=== PATIENT | female | born 1990 | race Caucasian/White ===

== ENCOUNTER → 2020-07-01 09:56 | Outpatient (BNVA) | payer OTHER, SELFPAY | PROVIDERS: PCP Hospitalist; Visit Provider Internal Medicine Gastroenterology | DX: M60.9 Myositis, unspecified (principal); R94.5 Abnormal results of liver function studies; K76.0 Fatty (change of) liver, not elsewhere classified; K21.9 Gastro-esophageal reflux disease without esophagitis; Z79.899 Other long term (current) drug therapy | CPT/HCPCS: 99213; Q3014 ==

== ENCOUNTER 2020-07-04 12:58 | Outpatient (REF) | payer MEDICARE, SELFPAY ==
[2020-07-04 14:06] LABS: Alanine Aminotransferase 161 U/L (0-31); Albumin Level 4.3 g/dL (3.5-5.0); Alkaline Phosphatase 61 U/L (39-117); Anion Gap 11 (12-20); Aspartate Amino Transferase 114 U/L (5-31); Bilirubin Total 1.5 mg/dL (0.0-1.0); Blood Urea Nitrogen 10 mg/dL (9-16); Carbon Dioxide 21 mmol/L (22-29); Chloride 110 mmol/L (96-108); Estimated Glomerular Filt Rate > 60; Glucose Random 92 mg/dL (60-115); Potassium 4.3 mmol/l (3.3-5.1); Rheumatoid Factor < 15.0 IU/mL (<15.0); Sodium 138 mmol/L (135-145); Total Protein 6.9 g/dL (6.5-8.0)
[2020-07-04 14:27] LABS: TSH reflex Free T4 1.05 mIU/mL (0.32-4.0)
[2020-07-04 14:43] LABS: Erythrocyte Sedimentation Rate 7 MM/HR (0-20)
[2020-07-05 11:17] LABS: Cyclic Citrullinated Peptide <16 UNITS
[2020-07-05 12:22] LABS: JO 1 Antibody <1.0 NEG AI (<1.0 NEG)
[2020-07-05 12:46] LABS: Anti-Centromere B Antibodies <1.0 NEG AI (<1.0 NEG)
[2020-07-05 14:21] LABS: Transglutaminase Ab IgG 4 U/mL; Transglutaminase IgA 1 U/mL
[2020-07-06 16:02] LABS: Mitochondrial Antibodies NEGATIVE (NEGATIVE)
== END 2020-07-04 12:59 | disposition home or self-care (01) ==
LOC: HO.LAB 12:58
PROVIDERS: Visit Provider Internal Medicine Gastroenterology
DX: R94.5 Abnormal results of liver function studies (principal); M60.9 Myositis, unspecified; K21.9 Gastro-esophageal reflux disease without esophagitis
CPT/HCPCS: 36415; 80053; 83516; 84443; 85652; 86038; 86200; 86235; 86255; 86256; 86431

== ENCOUNTER 2020-07-08 11:02 | Outpatient (REF) | payer OTHER, SELFPAY ==
--- NOTE | 2020-07-08 16:54 | XR_ITS ---
EXAMINATION: XR KNEE, BILATERAL CLINICAL INFORMATION: Myositis COMPARISON: None TECHNIQUE: 3 views of each knee performed. FINDINGS: The alignment is normal bilaterally. No acute fracture or joint space narrowing is seen. No evidence of joint effusion. IMPRESSION: Normal examinations.
--- NOTE | 2020-07-08 16:54 | XR_ITS ---
EXAMINATION: XR CHEST CLINICAL INFORMATION: Myositis. COMPARISON: Chest x-ray 04/05/2020 TECHNIQUE: 2 views of the chest were obtained. FINDINGS: No significant abnormality is noted involving the heart, lungs, mediastinum, bony thorax or soft tissues. IMPRESSION: Unremarkable examination.
[2020-07-08 17:47] LABS: C Reactive Protein 0.14 mg/dL (< or = 0.50); Rheumatoid Factor < 15.0 IU/mL (<15.0)
[2020-07-08 18:34] LABS: Erythrocyte Sedimentation Rate 6 MM/HR (0-20)
[2020-07-08 19:46] LABS: Lactate Dehydrogenase 227 U/L (122-220)
[2020-07-10 21:47] LABS: Cyclic Citrullinated Peptide <16 UNITS
[2020-07-11 01:36] LABS: Myoglobin, Quant. Random Urine <27 mcg/L (<28)
[2020-07-12 14:52] LABS: Antibody to SS-A Antigen <1.0 NEG AI (<1.0 NEG); Antibody to SS-B Antigen 3.6 POS AI (<1.0 NEG)
[2020-07-13 02:47] LABS: CK-BB None Detected (None Detected); CK-MB 0 % (<5); CK-MM 100 % (95-100); Creatine Kinase,Total,Serum 124 U/L (29-143)
[2020-07-15 06:02] LABS: Aldolase 9.2 U/L (<=8.1)
== END 2020-07-08 11:03 | disposition home or self-care (01) ==
LOC: HO.LAB 11:02
PROVIDERS: Student in an Organized Health Care Education/Training Program; PCP Hospitalist; Visit Provider Internal Medicine Gastroenterology
DX: M60.9 Myositis, unspecified (principal); R74.8 Abnormal levels of other serum enzymes; R94.5 Abnormal results of liver function studies; K21.9 Gastro-esophageal reflux disease without esophagitis; R13.10 Dysphagia, unspecified
CPT/HCPCS: 36415; 71046; 73562; 82085; 82550; 82552; 83615; 83874; 85652; 86140; 86200; 86235; 86431; 99204; 99212

== ENCOUNTER → 2020-07-21 15:06 | Outpatient (BNVA) | payer OTHER, SELFPAY | PROVIDERS: PCP Internal Medicine; Referring Provider Internal Medicine; Visit Provider Student in an Organized Health Care Education/Training Program | DX: R74.8 Abnormal levels of other serum enzymes (principal); M35.01 Sjogren syndrome with keratoconjunctivitis; R94.5 Abnormal results of liver function studies | CPT/HCPCS: 99212 ==

== ENCOUNTER 2020-08-03 09:09 | Outpatient (REF) | payer OTHER, SELFPAY ==
--- NOTE | 2020-08-03 09:13 | FL_ITS ---
EXAMINATION: FLUOROSCOPY BARIUM SWALLOW CLINICAL INFORMATION: Dysphagia COMPARISON: None TECHNIQUE: Barium swallow with air FINDINGS: Normal swallowing reflex. Normal esophageal motility and distention. No mass, mucosal lesion or stricture is identified in the esophagus. Patient swallowed a barium tablet which demonstrated normal passage to the stomach. No reflux is seen during the course of the procedure. No hiatal hernia is identified. FLUOROSCOPIC TIME: 0.9 minutes DLP: 9.9 gycm2 FL/FL barium swallow IMPRESSION: No significant abnormality demonstrated by barium swallow. Further evaluation with endoscopy as clinically warranted.
== END 2020-08-03 09:10 | disposition home or self-care (01) ==
LOC: HO.XRAY 09:09
PROVIDERS: PCP Hospitalist; Visit Provider Internal Medicine Gastroenterology
DX: M60.9 Myositis, unspecified (principal); R13.10 Dysphagia, unspecified
CPT/HCPCS: 74220

== ENCOUNTER 2020-09-05 11:19 | Outpatient (REF) | payer OTHER, SELFPAY ==
[2020-09-06 09:44] LABS: BV Int Neg Control Negative (Negative); BV Int Pos Control Positive (Positive)
[2020-10-01 10:06] LABS: CT PCR NOT DETECTED (Not Detect.); NG PCR NOT DETECTED (Not Detect.)
== END 2020-09-05 11:20 | disposition home or self-care (01) ==
LOC: HO.LAB 11:19
PROVIDERS: PCP Hospitalist; Visit Provider Advanced Practice Midwife
DX: N89.8 Other specified noninflammatory disorders of vagina (principal); R10.2 Pelvic and perineal pain; N92.6 Irregular menstruation, unspecified; M60.9 Myositis, unspecified; R74.8 Abnormal levels of other serum enzymes; M35.01 Sjogren syndrome with keratoconjunctivitis; Z20.2 Contact with and (suspected) exposure to infections with a predominantly sexual mode of transmission
CPT/HCPCS: 87480; 87491; 87510; 87591; 87660; 99202; 99212

== ENCOUNTER 2020-09-13 07:43 | Day surgery (SDC) | payer OTHER, SELFPAY ==
--- NOTE | 2020-09-12 09:50 | HO.ANESPROP2 ---
Documented by User: Susana Kapadia 09/12/20 09:52 HPI - Anesthesia Eval Consult details Narrative: 29yo F for Left Calf Muscle Biopsy [facility] Past Medical History Medical History Depression Dysphagia GERD (gastroesophageal reflux disease) Keratoconjunctivitis Menorrhagia Myositis Sjogren's syndrome Family History Family History Mother Clotting disorder History of high blood pressure Father No problems noted. Surgical History Surgical History History of axillary surgery Hx of endoscopy Social History Social History Household Members: Family Housing: [facility] Alcohol intake: never Smoking Status: Never smoker Advance Directives: No Advance Directives Information Provided: No Gender identity: female Meds Allergies Allergy/AdvReac Type Severity Reaction Status Date / Time No Known Allergies Allergy Verified 09/13/20 08:14 Home Medications Medication Instructions Recorded Confirmed Type pantoprazole 40 mg tablet,delayed 40 mg PO DAILY 07/08/20 07/21/20 History release sucralfate 100 mg/mL oral 10 ml PO BID 07/08/20 07/21/20 History suspension Exam Exam Date and Time: September 12, 2020 0950 Pertinent Lab Results Pertinent Lab Results: Laboratory Tests 04/05/20 07/04/20 16:06 13:20 WBC 6.3 Hgb 11.0 L Hct 35.0 L Plt Count 271 Sodium 138 Potassium 4.3 Chloride 110 H Carbon Dioxide 21 L BUN 10 Creatinine 0.76 Assessment and Plan Assessment Anesthesia Assessment: Chart Reviewed Documented by User: Jorgito Wilson MD 09/13/20 08:45 [facility] Past Medical History Medical History Depression Dysphagia GERD (gastroesophageal reflux disease) Keratoconjunctivitis Menorrhagia Myositis Sjogren's syndrome Family History Family History Mother Clotting disorder History of high blood pressure Father No problems noted. Surgical History Surgical History History of axillary surgery Hx of endoscopy Social History Social History Household Members: Family [facility]: [facility] Alcohol intake: never Smoking Status: Never smoker Advance Directives: No Advance Directives Information Provided: No Gender identity: female Meds Allergies Allergy/AdvReac Type Severity Reaction Status Date / Time No Known Allergies Allergy Verified 09/13/20 08:14 Home Medications Medication Instructions Recorded Confirmed Type pantoprazole 40 mg tablet,delayed 40 mg PO DAILY 07/08/20 07/21/20 History release sucralfate 100 mg/mL oral 10 ml PO BID 07/08/20 07/21/20 History suspension Exam Airway Mallampati Class: II TM Dist: >3cm Neck ROM: Full Loose/Missing/Broken Teeth: No Heart: RRR Lungs: NL Other: AO Assessment and Plan Assessment Anesthesia Assessment: Anesthesia Plan Discussed and Chart Reviewed Final Anesthetic Review NPO: Yes ASA Class: II Final Preanesthetic Review: No Changes in Pt Med Stat, Meds/Allgs Chart Reviewed, Consent Obtained/Reviewed and Anes Risks/Benef Reviewed Patient Risk: Low Procedure Risk: Low Anesthetic Plan Anesthetic Plan: MAC: Disposition: Standard PACU
[2020-09-13 08:27] VITALS: BP 128/74; PULSE 93; RESP 16; TEMP 36.6; O2SAT 98
[2020-09-13 08:33] LABS: UPreg QC Valid YES; Urine Pregnancy NEGATIVE (NEGATIVE)
[2020-09-13] MEDS: Lactated Ringers 1,000 ML 100 ML IVCONT (08:51)
[2020-09-13] MEDS: ceFAZolin Sodium/Dextrose,Iso 2 GM/50 ML PIGGYBACK IV (08:52)
--- NOTE | 2020-09-13 09:10 | MHC.SHP ---
Pre-Procedural Eval Section B Chief Complaint: Myositis Allergies: Allergies Allergy/AdvReac Type Severity Reaction Status Date / Time No Known Allergies Allergy Verified 09/13/20 08:14 Plan I have reviewed the history and physical and performed a pertinent physical examination on my patient. No changes have occurred unless specified.
[2020-09-13] MEDS: oxyCODONE HCl Immed Release 5 MG TABLET PO (09:16)
[2020-09-13 09:25] VITALS: BMI 32.6
--- NOTE | 2020-09-13 10:12 | PM.OP ---
Brief Operative Note Date of Service: 09/13/20 Pre-op diagnosis: myositis Post-op diagnosis: same Procedure: L calf muscle biopsy Surgeon: Alejandro Higuera MD Anesthesia: MAC Estimated blood loss (mL): 5 Pathology: other (muscle biopsy) Condition: stable Disposition: PACU
[2020-09-13 10:14] VITALS: BP 116/66; PULSE 77; RESP 16; TEMP 36.8; O2SAT 100
[2020-09-13 10:29] VITALS: BP 120/70; PULSE 58; RESP 16; O2SAT 100
--- NOTE | 2020-09-13 10:36 | OP_ITS ---
SURGEON: Alejandro Higuera MD INDICATIONS: The patient is a 29-year-old female with chronic left calf pain as well as diagnosis of Sjogren's disease. She had been referred to me by her derivatives trader for left calf muscle biopsy. She understood the technique of procedure and she was aware of the risks, benefits, and alternatives. PREOPERATIVE DIAGNOSIS: Myositis. POSTOPERATIVE DIAGNOSIS: Myositis. PROCEDURE PERFORMED: Muscle biopsy, left calf, under anesthesia. ESTIMATED BLOOD LOSS: COMPLICATIONS: ANESTHESIA: ASSISTANTS: Vanessa Cruz PA-C SPECIMENS: DESCRIPTION OF PROCEDURE: She was brought to the operating room, placed in prone position under monitored anesthesia care. The left calf was prepped and draped in usual sterile fashion. A surgical time-out has been done. The patient received cefazolin 2 g IV preoperatively. I used lidocaine 1% to infiltrate the planned line of incision. I made a transverse incision in the skin using blade 15, carried down to full-thickness skin and subcutaneous fat with electrocautery until we were able to reach the muscle fascia. I infiltrated this area some more with lidocaine 1%. I made an incision using blade 15 on the fascia, and the muscle fibers were exposed. I isolated 1.5 cm length of muscle. This was clamped on both ends and was divided using scissors. This was stretched using the muscle clamp. I cauterized the divided edges of the muscle using electrocautery to achieve hemostasis. I reapposed the divided edges of the muscle fibers using [id number] Dexon 3-0 stitch. I closed the fascia of the muscle with a running Dexon 2-0 stitch. I infiltrated the area of the subcutaneous layer. The subcutaneous layer was reapposed with Dexon 3-0 interrupted sutures. Skin closure achieved with Dexon 4-0 subcuticular running sutures. Steri-Strips and dressings were applied. The patient tolerated the procedure well. There were no complications noted. Initial and final counts of sponges and instruments were correct. Estimated blood loss was about 3 mL. The patient extubated without difficulty and was then transferred to recovery room with stable vital signs. MD SERGEI Archibald/PRAVIN / [phone]
[2020-09-13 10:44] VITALS: BP 122/66; PULSE 64; RESP 16; TEMP 36.8; O2SAT 100
--- NOTE | 2020-09-13 12:25 | PC.NURSE ---
DRESSING [facility]I PER REPORT PT STS PAIN TO CALF WHEN MOVING, DENIES NAUSEA, PALE, HAD OXYCODONE PRE OP
--- NOTE | 2020-09-13 13:47 | HO.POSTANES ---
Post Anesthesia Evaluation Post Anesthesia Evaluation Vital Signs: Vital Signs Temp Pulse Resp BP Pulse Ox 09/13/20 10:44 98.2 F 64 16 122/66 100 09/13/20 10:29 58 16 120/70 100 09/13/20 10:14 98.2 F 77 16 116/66 100 09/13/20 08:27 98 F 93 16 128/74 98 Anesthesia: Monitored Mental Status: Awake Pain Control: Satisfactory Nausea/Vomiting: None Hydration: Adequate Anesthesia-Related Issues: No Anes. Related Issues
== END 2020-09-13 11:40 | disposition home or self-care (01) ==
PROVIDERS: Nurse Practitioner; PCP Hospitalist; Visit Provider Surgery
PROC: (CPT 20205; principal; 2020-09-13 09:50)
DX: M60.9 Myositis, unspecified (principal); G89.29 Other chronic pain; M35.00 Sjogren syndrome, unspecified; F32.9 Major depressive disorder, single episode, unspecified; Z79.899 Other long term (current) drug therapy
CPT/HCPCS: 20205; 81025; 88300; 88305; 88313; 88319; 88341; 88342; 88348; J0690; J1100; J2250; J2405; J3010

== ENCOUNTER → 2020-09-20 16:18 | Outpatient (BNVA) | payer OTHER, MEDICARE, SELFPAY | PROVIDERS: PCP Hospitalist; Visit Provider Surgery | DX: M60.9 Myositis, unspecified (principal); Z98.890 Other specified postprocedural states | CPT/HCPCS: 99212 ==

== ENCOUNTER → 2020-09-29 15:50 | Outpatient (BNVA) | payer SELFPAY | PROVIDERS: PCP Hospitalist; Visit Provider Surgery | DX: M60.9 Myositis, unspecified (principal) | CPT/HCPCS: 99212 ==

== ENCOUNTER → 2020-11-08 14:15 | Outpatient (BNVA) | payer OTHER, SELFPAY | PROVIDERS: Visit Provider Obstetrics & Gynecology | CPT/HCPCS: 99212 ==

== ENCOUNTER 2020-11-21 12:50 | Outpatient (REF) | payer OTHER, SELFPAY ==
--- NOTE | ~2020-11-21 | US_ITS ---
EXAMINATION: US PELVIS LIMITED US TRANSVAGINAL CLINICAL INFORMATION: Pelvic and perineal pain. COMPARISON: None TECHNIQUE: Transabdominal and transvaginal ultrasound of the pelvis is performed. FINDINGS: The uterus is anteverted measuring 11.0 cm in length, 5.7 cm in AP and 5.8 cm in transverse dimension. The uterus is homogeneous in echotexture. Right ovary measures 3.3 x 2.8 x 1.8 cm and volume 8.7 mL. It appears unremarkable. Left ovary measures 3.4 x 3.4 x 2.4 cm and volume 14.5 mL. There is an anechoic cyst measuring 2.2 x 1.3 x 1.3 cm. There is no free fluid in the cul-de-sac. US/US transvaginal IMPRESSION: Anteverted uterus, otherwise unremarkable. Small left ovarian cyst measuring 2.2 cm. There is no free fluid in the cul-de-sac.
--- NOTE | ~2020-11-21 | US_ITS ---
EXAMINATION: US PELVIS LIMITED US TRANSVAGINAL CLINICAL INFORMATION: Pelvic and perineal pain. COMPARISON: None TECHNIQUE: Transabdominal and transvaginal ultrasound of the pelvis is performed. FINDINGS: The uterus is anteverted measuring 11.0 cm in length, 5.7 cm in AP and 5.8 cm in transverse dimension. The uterus is homogeneous in echotexture. Right ovary measures 3.3 x 2.8 x 1.8 cm and volume 8.7 mL. It appears unremarkable. Left ovary measures 3.4 x 3.4 x 2.4 cm and volume 14.5 mL. There is an anechoic cyst measuring 2.2 x 1.3 x 1.3 cm. There is no free fluid in the cul-de-sac. US/US pelvic limited IMPRESSION: Anteverted uterus, otherwise unremarkable. Small left ovarian cyst measuring 2.2 cm. There is no free fluid in the cul-de-sac.
== END 2020-11-21 12:51 | disposition home or self-care (01) ==
LOC: HO.US 12:50
PROVIDERS: Visit Provider Advanced Practice Midwife
DX: R10.2 Pelvic and perineal pain (principal); N89.8 Other specified noninflammatory disorders of vagina; N92.6 Irregular menstruation, unspecified
CPT/HCPCS: 76830; 76857

== ENCOUNTER → 2020-11-28 15:42 | Outpatient (BNVA) | payer OTHER, SELFPAY | PROVIDERS: Visit Provider Advanced Practice Midwife | DX: Z13.89 Encounter for screening for other disorder (principal) | CPT/HCPCS: Q3014 ==

== ENCOUNTER → 2020-12-20 14:50 | Outpatient (BNVA) | payer OTHER, SELFPAY | PROVIDERS: PCP Hospitalist; Visit Provider Obstetrics & Gynecology | DX: Z13.89 Encounter for screening for other disorder (principal) | CPT/HCPCS: 99212 ==

== ENCOUNTER 2020-12-22 11:58 | Day surgery (SDC) | payer OTHER, SELFPAY ==
[2020-12-21 12:14] VITALS: BMI 29.5
[2020-12-22 12:38] VITALS: BP 137/84; PULSE 92; RESP 18; TEMP 37.2; O2SAT 98
[2020-12-22] MEDS: Lactated Ringers 1,000 ML 50 ML IV (12:47)
[2020-12-22] MEDS: Acetaminophen 325 MG TABLET 650 MG PO (12:50)
[2020-12-22 13:07] LABS: UPreg QC Valid YES; Urine Pregnancy NEGATIVE (NEGATIVE)
--- NOTE | 2020-12-22 13:50 | MHC.SHP ---
Pre-Procedural Eval Section A The patient is an INPATIENT: No Changes since office visit: No Cold of Flu in the past 2 weeks, No New Medical Problems, No Changes in Medication and No Patient answered all questions The History & Physical has been completed within 30 days and I have reviewed it.: Yes Section B Chief Complaint: Unwanted Fertility Allergies: Allergies Allergy/AdvReac Type Severity Reaction Status Date / Time No Known Allergies Allergy Verified 12/20/20 14:51 Plan I have reviewed the history and physical and performed a pertinent physical examination on my patient. No changes have occurred unless specified.
--- NOTE | 2020-12-22 13:52 | W.PM.OPN ---
Documented by User: My Moreno MD 12/22/20 14:48 Operative Note Operative Note Date of Service: 12/22/20 Narrative: Pre-Op Diagnosis: unwanted fertility Post-Op Diagnosis: unwanted fertility Procedures performed: laparoscopic bilateral tubal ligation with cautery Ms. Nettles is a 30 year old who has completed her family planning and desires a permanent form of sterilization. Surgical Risks: The patient was informed of the risks and benefits of the procedure. Risks included but were not limited to bleeding; infection; injury to the uterus, ovaries, bladder, bowels, blood vessels, or nerves. The patient was counseled on the risk of sterilization failure being about 1% on average. The patient was informed that in the event a occurs, the risk of ectopic is increased. The patient expressed understanding of the risks involved, all questions were answered, and the patient consented to the procedure. The patient had valid sterilization consent at the time of the procedure. The patient was taken to the operating room where a time out was performed to confirm correct patient and correct procedure. General anesthesia was established. The patient was then positioned on the operating table in the dorsal lithotomy position with the legs supported using stirrups. All pressure points were padded and a Lucy hugger was placed to maintain control of core body temperature. The patient was then prepped and draped in the usual sterile fashion. A red rubber catheter was inserted and her bladder emptied. A sponge stick was placed in the vagina for uterine manipulation. Attention was turned to the abdomen where a 5mm vertical infraumbilical incision was made. The 5mm trocar was introduced under direct visualization using the laparoscopy within the sleeve of the trocar. After intra-abdominal placement had been confirmed, the trocar was removed leaving the sleeve in place. The camera was introduced and pneumoperitoneum was established using carbon dioxide. Inspection of the abdominal cavity showed no gross abnormalities and there was no evidence of injury to the bowel, bladder, or vasculature. Attention was turned to the pelvis. The patient was placed into Trendelenburg position. The fallopian tubes and ovaries were visualized bilaterally. There were no abnormalities noted. A small incision was made in the midline approximately 2cm above the pubic symphysis. A 5mm trocar was introduced through this incision under direct visualization with the laparoscope. The fallopian tubes were inspected bilaterally and the fimbriated ends of the fallopian tube were visualized bilaterally. The left fallopian tube and mesosalpinx were grasped and cauterized using Bipolar electrocautery with the Ligasure device. This was done with approximately three chu starting medially about 1cm from the cornua and working laterally. Good cautery was confirmed. Attention was then turned to the contralateral fallopian tube and mesosalpinx which was grasped about 1cm from the cornua and cauterized with three chu moving laterally with each cauterization. Good fulguration of both tubes was then confirmed. The pneumoperitoneum was then evacuated. The laparoscope was removed and the trocar sleeves were removed. The skin incisions were closed each with a single interrupted 3-0 Vicryl suture and Dermabond was applied. Good hemostasis was confirmed. The sponge stick was removed from the vagina. The patient was transferred to the recovery room in stable condition. All needle, sponge, and instrument counts were noted to be correct x2 at the end of the procedure.
--- NOTE | 2020-12-22 13:53 | HO.ANESPROP2 ---
HPI - Anesthesia Eval Consult details Narrative: 30 yo female patient for laparoscopic BTL PMFSH Active Problems Active Problems: All Active Problems (Updated 09/12/20 @ 09:50 by Susana Kapadia) Sjogren's syndrome (Acute) Dysphagia (Acute) GERD (gastroesophageal reflux disease) (Acute) Myositis (Acute) control counseling (Acute) Potential exposure to STD (Acute) Vaginal discharge (Acute) Irregular menses (Acute) Pelvic pain (Acute) Elevated aldolase level (Acute) Abnormal LFTs (Acute) Past Medical History Medical History Depression Dysphagia GERD (gastroesophageal reflux disease) Keratoconjunctivitis Menorrhagia Myositis Sjogren's syndrome Family History Family History Mother Clotting disorder History of high blood pressure Father No problems noted. Family history of problems with anesthesia: No Surgical History Surgical History History of axillary surgery Hx of endoscopy History of Problems with Anesthesia: No Social History Social History Household Members: Family Housing: Condominium Alcohol intake: never Smoking Status: Never smoker Use of substances other than those prescribed or required for medical reasons: No Advance Directives: No Advance Directives Information Provided: Yes Gender identity: female Meds Allergies Allergy/AdvReac Type Severity Reaction Status Date / Time No Known Allergies Allergy Verified 12/20/20 14:51 Active Medications: Current Medications Generic Name Dose Route Start Last Admin Trade Name Freq PRN Reason Stop Dose Admin Lactated Ringer's 1,000 mls @ 50 mls/hr 12/22/20 12:45 12/22/20 12:47 Lr IV 50 mls/hr .Q20H ANJALI Administration Home Medications Medication Instructions Recorded Confirmed Last Taken Type pantoprazole 40 mg tablet,delayed 40 mg PO DAILY 07/08/20 09/20/20 Unknown History release sucralfate 100 mg/mL oral 10 ml PO BID 07/08/20 09/20/20 Unknown History suspension Exam Exam Date and Time: December 22, 2020 1353 Height,Weight and Vital Signs: Height 5 ft 9 in Weight 90.718 kg Last Vital Signs Temp 98.9 F 12/22/20 12:38 Pulse 92 12/22/20 12:38 Resp 18 12/22/20 12:38 BP 137/84 12/22/20 12:38 Pulse Ox 98 12/22/20 12:38 Pertinent Lab Results Pertinent Lab Results: Laboratory Tests 12/22/20 12:42 Urine Test NEGATIVE Airway Mallampati Class: II TM Dist: >3cm Neck ROM: Full Heart: RRR Lungs: CTAB Assessment and Plan Assessment Anesthesia Assessment: Anesthesia Plan Discussed and Chart Reviewed Final Anesthetic Review NPO: Yes ASA Class: II Final Preanesthetic Review: No Changes in Pt Med Stat, Meds/Allgs Chart Reviewed, Consent Obtained/Reviewed and Anes Risks/Benef Reviewed Patient Risk: Low Procedure Risk: Intermediate Assessment/Block/Sedation in SS: Assess/Block/Sedation-SS Anesthetic Plan Anesthetic Plan: GA Disposition: Standard PACU
[2020-12-22 14:49] VITALS: BP 136/88; PULSE 103; RESP 17; TEMP 36.6; O2SAT 100
[2020-12-22 14:54] VITALS: BP 128/81; PULSE 94; RESP 17; O2SAT 97
[2020-12-22] MEDS: oxyCODONE HCl Immed Release 5 MG TABLET 10 MG PO (14:57)
[2020-12-22 14:58] VITALS: BP 120/69; PULSE 101; RESP 19; O2SAT 97
[2020-12-22 15:04] VITALS: BP 122/73; PULSE 95; RESP 17; O2SAT 97
[2020-12-22 15:19] VITALS: BP 121/70; PULSE 98; RESP 17; TEMP 36.6; O2SAT 99
== END 2020-12-22 15:40 | disposition home or self-care (01) ==
PROVIDERS: Anesthesiology; Visit Provider Obstetrics & Gynecology
PROC: (CPT 58670; principal; 2020-12-22 13:20)
DX: Z30.2 Encounter for sterilization (principal); M35.00 Sjogren syndrome, unspecified; M60.9 Myositis, unspecified; F32.9 Major depressive disorder, single episode, unspecified; Z79.899 Other long term (current) drug therapy
CPT/HCPCS: 58670; 81025; J1100; J2250; J2405; J3010

== ENCOUNTER → 2021-01-06 14:08 | Outpatient (BNVA) | payer OTHER, SELFPAY | PROVIDERS: Visit Provider Obstetrics & Gynecology | DX: Z09 Encounter for follow-up examination after completed treatment for conditions other than malignant neoplasm (principal) | CPT/HCPCS: Q3014 ==

== ENCOUNTER 2021-03-08 13:46 | Outpatient (REF) | payer OTHER, SELFPAY ==
[2021-03-08 16:31] LABS: Syphilis Screen Nonreactive (Nonreactive)
[2021-03-08 16:38] LABS: TSH reflex Free T4 1.22 uIU/mL (0.32-4.0)
[2021-03-09 03:52] LABS: HBsAGNum1 0.19 S/CO (0.00-0.99); Hepatitis B Surface Antigen Negative (Negative)
[2021-03-09 03:54] LABS: HIV AB/AG Nonreactive (Nonreactive); HIV Num 1 0.06 S/CO (0.00-0.99); ~HepC Num1 0.09 S/CO (0.00-0.79); ~Hepatitis C Antibody Nonreactive (Nonreactive)
[2021-03-09 05:36] LABS: CT PCR NOT DETECTED (Not Detect.); NG PCR NOT DETECTED (Not Detect.)
[2021-03-09 09:49] LABS: BV Int Neg Control Negative (Negative); BV Int Pos Control Positive (Positive)
== END 2021-03-08 13:47 | disposition home or self-care (01) ==
LOC: HO.LAB 13:46
PROVIDERS: Advanced Practice Midwife; Visit Provider Obstetrics & Gynecology
DX: Z01.419 Encounter for gynecological examination (general) (routine) without abnormal findings (principal); Z01.84 Encounter for antibody response examination; Z11.3 Encounter for screening for infections with a predominantly sexual mode of transmission; Z11.4 Encounter for screening for human immunodeficiency virus [HIV]; Z11.59 Encounter for screening for other viral diseases; R63.5 Abnormal weight gain; N64.52 Nipple discharge; Z20.2 Contact with and (suspected) exposure to infections with a predominantly sexual mode of transmission
CPT/HCPCS: 36415; 84146; 84443; 86780; 86803; 87340; 87389; 87480; 87491; 87510; 87591; 87660; 88142

== ENCOUNTER → 2021-03-15 10:47 | Outpatient (BNVA) | payer OTHER, SELFPAY | PROVIDERS: Visit Provider Obstetrics & Gynecology | DX: N64.52 Nipple discharge (principal); R63.5 Abnormal weight gain | CPT/HCPCS: Q3014 ==

== ENCOUNTER → 2021-08-30 12:55 | Outpatient (BNVA) | payer OTHER, SELFPAY | PROVIDERS: Visit Provider Physician Assistant Surgical ==

== ENCOUNTER → 2021-09-04 08:48 | Outpatient (BNVA) | payer OTHER, SELFPAY | PROVIDERS: PCP Hospitalist; Visit Provider Surgery | CPT/HCPCS: Q3014 ==

== ENCOUNTER 2021-09-06 07:55 | Outpatient (REF) | payer OTHER, SELFPAY ==
--- NOTE | ~2021-09-06 | XR_ITS ---
EXAMINATION: XR CHEST CLINICAL INFORMATION: Hypersomnia, unspecified. COMPARISON: Chest radiograph done on 07/08/2020. TECHNIQUE: 2 views of the chest were obtained. FINDINGS: No significant abnormality is noted involving the heart, lungs, mediastinum, bony thorax or soft tissues. XR/XR chest 2V IMPRESSION: Unremarkable examination. No significant change since 07/08/2020.
[2021-09-06 08:13] LABS: MANUAL DIFF FLAG NO
--- NOTE | 2021-09-06 08:20 | ECG_ITS ---
Test Reason : hypersomnia Blood Pressure : / mmHG Vent. Rate : 069 BPM Atrial Rate : 069 BPM P-R Int : 150 ms QRS Dur : 082 ms QT Int : 400 ms P-R-T Axes : 033 057 040 degrees QTc Int : 428 ms Normal sinus rhythm with sinus arrhythmia Normal ECG When compared with ECG of 05-APR-2020 15:40, No significant change was found Referred By: Simon Madden Electronically Signed By:ROXY HARDWICK MD
[2021-09-06 08:34] LABS: Basophils Absolute Auto 0.1 X10*3/uL (0.0-0.2); Basophils Percent Auto 0.8 % (0-2); Eosinophils Absolute Auto 0.2 X10*3/uL (0.0-0.4); Eosinophils Percent Auto 2.7 % (0-4); Hematocrit 36.8 % (37.0-47.0); Hemoglobin 11.8 g/dl (12.0-16.0); Imm Gran Abs Auto 0.02 X10*3/uL (0.00-0.03); Imm Gran Pct Auto 0.3 % (0.0-0.4); Lymphocytes Absolute Auto 2.2 X10*3/uL (1.2-4.9); Lymphocytes Percent Auto 33.3 % (20-40); Mean Corpuscular HGB Conc 32.1 g/dl (31.0-35.0); Mean Corpuscular Hemoglobin 27.3 pg (27.0-33.0); Mean Corpuscular Volume 85.2 fL (80.0-98.0); Mean Platelet Volume 10.6 fL (9.4-12.3); Monocytes Absolute Auto 0.4 X10*3/uL (0.1-1.2); Monocytes Percent Auto 6.6 % (2-11); Neutrophils Absolute Auto 3.8 x10*3/uL (2.0-8.3); Neutrophils Percent Auto 56.3 % (45-73); Platelet Count 309 X10*3/uL (160-400); Red Blood Count 4.32 X10*6/uL (4.20-5.50); Red Cell Distribution Width 16.1 % (11.0-16.0); White Blood Count 6.7 X10*3/uL (4.8-10.8)
[2021-09-06 09:03] LABS: Alanine Aminotransferase 271 U/L (0-31); Albumin Level 4.1 g/dL (3.5-5.0); Alkaline Phosphatase 84 U/L (39-117); Anion Gap 13 (12-20); Aspartate Amino Transferase 218 U/L (5-31); Blood Urea Nitrogen 11 mg/dL (9-16); C Reactive Protein 0.46 mg/dL (< or = 0.50); Calcium 9.7 mg/dL (8.4-10.2); Carbon Dioxide 21 mmol/L (22-29); Chloride 108 mmol/L (96-108); Cholesterol 197 mg/dL; Estimated Glomerular Filt Rate > 60; Glucose Random 115 mg/dL (60-115); HDL Cholesterol 59 mg/dL; Iron 78 mcg/dL (30-160); LDL Cholesterol Calculated 124 mg/dl; Percent Iron Saturation 18 % (15-50); Potassium 4.4 mmol/L (3.3-5.1); Sodium 138 mmol/L (135-145); Total Iron Binding Capacity 436 mcg/dL (228-428); Triglycerides 73 mg/dL; Unsaturated Iron Binding 358 ug/dL
[2021-09-06 09:14] LABS: Ferritin 133 ng/mL (10-122); Insulin 58 uU/mL (2-29); TSH reflex Free T4 2.91 uIU/mL (0.32-4.0); Vitamin D 25-OH Total 7.8 ng/mL (>30)
[2021-09-06 09:24] LABS: Estimated Average Glucose 134 mg/dL; Hemoglobin A1c % 6.3 %
[2021-09-06 09:46] LABS: Folate 18.1 ng/mL (> or = 4.0); Vitamin B12 588 pg/mL (200-900)
[2021-09-08 16:26] LABS: Calcium (PTHI) 9.7 mg/dL (8.6-10.2); PTHI 68 pg/mL (14-64)
[2021-09-12 01:47] LABS: Zinc 92 mcg/dL (60-130)
[2021-09-13 12:17] LABS: Vitamin B1 6 nmol/L (8-30)
[2021-09-13 17:17] LABS: Vitamin A 32 mcg/dL (38-98)
== END 2021-09-06 07:56 | disposition home or self-care (01) ==
LOC: HO.LAB 07:55
PROVIDERS: PCP Hospitalist; Visit Provider Surgery
DX: E66.9 Obesity, unspecified (principal); Z68.37 Body mass index [BMI] 37.0-37.9, adult; K21.9 Gastro-esophageal reflux disease without esophagitis; G47.10 Hypersomnia, unspecified
CPT/HCPCS: 36415; 71046; 80053; 80061; 82306; 82607; 82728; 82746; 83036; 83525; 83540; 83970; 84425; 84443; 84590; 84630; 85025; 86140; 93005

== ENCOUNTER → 2021-10-06 08:05 | Outpatient (BNVA) | payer OTHER, SELFPAY | PROVIDERS: PCP Hospitalist; Visit Provider Surgery | CPT/HCPCS: Q3014 ==

== ENCOUNTER → 2021-10-09 08:01 | Outpatient (BNVA) | payer OTHER, SELFPAY | PROVIDERS: PCP Hospitalist; Visit Provider Dietitian, Registered | DX: E66.9 Obesity, unspecified (principal); Z71.3 Dietary counseling and surveillance | CPT/HCPCS: 97802 ==

== ENCOUNTER 2021-10-10 09:33 | Outpatient (REF) | payer OTHER, SELFPAY ==
[2021-10-10 14:12] LABS: H Pylori Breath Test Positive (Negative)
== END 2021-10-10 09:34 | disposition home or self-care (01) ==
LOC: HO.LNP 09:33
PROVIDERS: Surgery; PCP Hospitalist; Referring Provider Hospitalist; Visit Provider Physician Assistant Surgical
DX: E66.9 Obesity, unspecified (principal); Z68.37 Body mass index [BMI] 37.0-37.9, adult; G47.10 Hypersomnia, unspecified; K21.9 Gastro-esophageal reflux disease without esophagitis
CPT/HCPCS: 83013; 99211

== ENCOUNTER → 2021-10-27 07:31 | Outpatient (BNVA) | payer OTHER, SELFPAY | PROVIDERS: PCP Hospitalist; Visit Provider Surgery | DX: Z13.89 Encounter for screening for other disorder (principal) ==

== ENCOUNTER → 2021-11-03 13:22 | Outpatient (BNVA) | payer OTHER, SELFPAY | PROVIDERS: PCP Hospitalist; Referring Provider Hospitalist; Visit Provider Surgery | DX: Z13.89 Encounter for screening for other disorder (principal) ==

== ENCOUNTER → 2021-11-06 08:12 | Outpatient (BNVA) | payer OTHER, SELFPAY | PROVIDERS: PCP Hospitalist; Visit Provider Surgery | DX: E66.9 Obesity, unspecified (principal); Z68.34 Body mass index [BMI] 34.0-34.9, adult | CPT/HCPCS: Q3014 ==

== ENCOUNTER 2021-11-07 08:54 | Outpatient (REF) | payer OTHER, SELFPAY ==
--- NOTE | ~2021-11-07 | US_ITS ---
EXAMINATION: US COMPLETE ABDOMEN WITH LIVER ELASTOGRAPHY CLINICAL INFORMATION: Hypersomnia COMPARISON: Previous abdominal ultrasound April 2020 TECHNIQUE: Real-time imaging of the abdominal viscera. Noninvasive ultrasound liver fibrosis assessment is performed using Yudelka ElastPQ point quantification shear wave elastography (2D-SWE) with a C5-2 MHz transducer. Multiple elastography samples are obtained. FINDINGS: PANCREAS: Normal. ABDOMINAL AORTA: The proximal, middle, and distal aortic segments are normal in caliber. INFERIOR VENA CAVA: Visualized portions are normal. LIVER: Liver echotexture is increased probably representing fatty infiltration. There are hypoechoic areas adjacent to the gallbladder, characteristic location of focal fatty sparing. No other focal liver lesion is seen. Liver is upper normal in size. The liver contour is normal. There is no biliary duct dilatation. The right lobe measures 18 cm in length. The left lobe measures 11 cm in length. Portal flow is normal/hepatopedal Shear wave liver elastography median stiffness is 2 m/s (reference: normal median stiffness is 1.3 m/s or less). IQR/median stiffness to assess sampling precision is 0.07 (reference: good quality data set is IQR/median stiffness of 0.15 or less). GALLBLADDER: Normal. The gallbladder is physiologically distended without evidence of stones, sludge, polyps, wall thickening or pericholecystic fluid. COMMON BILE DUCT: Normal in caliber measuring 0.3 cm in diameter. RIGHT KIDNEY: Normal. No hydronephrosis. No renal calculi or focal parenchymal lesions. The kidney measures 11.5 cm in maximum dimension. LEFT KIDNEY: Normal. No hydronephrosis. No renal calculi or focal parenchymal lesions. The kidney measures 11.8 cm in maximum dimension. SPLEEN: Normal. The spleen measures 10.8 cm in maximum dimension. FREE FLUID: None. US/US abdomen comp w elastography IMPRESSION: 1. Impression: fatty upper normal-size liver. 2. Liver elastography: Adequate liver sampling. Increased liver stiffness suggestive of compensated advanced chronic liver disease but need further test for confirmation. REFERENCE: Society of Radiologists in Ultrasound Liver Stiffness Thresholds (2020): LIVER STIFFNESS THRESHOLDS: *Liver Stiffness equal or less than 1.3 m/s: High probability of being normal. *Liver Stiffness less than 1.7 m/s: In the absence of other known clinical signs, rules out compensated advanced chronic liver disease. *Liver Stiffness 1.7-2.1 m/s: Suggestive of compensated advanced chronic liver disease but need further test for confirmation. *Liver Stiffness over 2.1 m/s: Rules in compensated advanced chronic liver disease. *Liver Stiffness over 2.4 m/s: Suggestive of clinically significant portal hypertension. QUALITY OF DATA SET: *IQR/Median value equal or less than 0.15 implies a quality data set. *IQR/Median value over 0.15 implies a poor quality data set. SIGNIFICANT CHANGE FROM PRIOR EXAM: Significant change if liver stiffness measurement is 10% or greater from prior exam. OTHER CONSIDERATIONS: The stage of liver fibrosis may be overestimated in the setting of acute hepatitis, liver inflammation, elevated liver function tests, hepatic vascular congestion, obstructive cholestasis, non-fasting state, and infiltrative diseases such as amyloidosis and lymphoma. In some patients with NAFLD, the liver stiffness thresholds for compensated advanced chronic liver disease may be lower. In causes other than viral hepatitis and NAFLD, liver stiffness thresholds are not well established.
--- NOTE | ~2021-11-07 | FL_ITS ---
EXAMINATION: XR FLUOROSCOPY UPPER GI WITH AIR CLINICAL INFORMATION: Hypersomnia. COMPARISON: None. TECHNIQUE: Routine upper GI air-contrast study was performed. FINDINGS: Following oral administration of thick barium and effervescent granules, there is normal propagation of bolus from the oral cavity through the pharynx and esophagus and into the stomach without any evidence of obstruction, narrowing or stricture. The course, caliber and peristalsis of the stomach, duodenal bulb and the sweep are normal. Mild gastroesophageal reflux is noted without hiatal hernia. The mucosal pattern of esophagus, stomach and the duodenum is normal. FLUOROSCOPY TIME: 2.3 minutes DOSE AREA PRODUCT: 34.038 uGy-m2 (microgray-meter squared) FL/FL upper GI w air IMPRESSION: Mild gastroesophageal reflux without hiatal hernia.
[2021-11-07 09:28] LABS: MANUAL DIFF FLAG NO
[2021-11-07 10:15] LABS: Basophils Percent Auto 0.9 % (0-2); Eosinophils Absolute Auto 0.1 X10*3/uL (0.0-0.4); Hematocrit 37.3 % (37.0-47.0); Hemoglobin 11.7 g/dl (12.0-16.0); Imm Gran Abs Auto 0.01 X10*3/uL (0.00-0.03); Imm Gran Pct Auto 0.2 % (0.0-0.4); Lymphocytes Absolute Auto 1.7 X10*3/uL (1.2-4.9); Lymphocytes Percent Auto 38.8 % (20-40); Mean Corpuscular HGB Conc 31.4 g/dl (31.0-35.0); Mean Corpuscular Hemoglobin 26.8 pg (27.0-33.0); Mean Corpuscular Volume 85.6 fL (80.0-98.0); Mean Platelet Volume 11.1 fL (9.4-12.3); Monocytes Absolute Auto 0.4 X10*3/uL (0.1-1.2); Monocytes Percent Auto 8.6 % (2-11); Neutrophils Absolute Auto 2.1 x10*3/uL (2.0-8.3); Neutrophils Percent Auto 48.5 % (45-73); Platelet Count 297 X10*3/uL (160-400); Red Blood Count 4.36 X10*6/uL (4.20-5.50); Red Cell Distribution Width 14.9 % (11.0-16.0); White Blood Count 4.3 X10*3/uL (4.8-10.8)
[2021-11-07 10:19] LABS: INTERNATIONAL NORM RATIO 1.1 (0.9-1.1)
[2021-11-07 10:21] LABS: Partial Thromboplastin Time 34.8 SEC (24.1-38.0)
[2021-11-07 10:50] LABS: Estimated Average Glucose 117 mg/dL; Hemoglobin A1c % 5.7 %
[2021-11-07 11:14] LABS: Insulin 40 uU/mL (2-29); TSH reflex Free T4 2.16 uIU/mL (0.32-4.0)
[2021-11-07 11:46] LABS: Alanine Aminotransferase 135 U/L (0-31); Albumin Level 4.2 g/dL (3.5-5.0); Alkaline Phosphatase 77 U/L (39-117); Anion Gap 12 (12-20); Aspartate Amino Transferase 94 U/L (5-31); Bilirubin Total 1.1 mg/dL (0.0-1.0); Blood Urea Nitrogen 10 mg/dL (9-16); C Reactive Protein 0.46 mg/dL (< or = 0.50); Calcium 9.7 mg/dL (8.4-10.2); Carbon Dioxide 25 mmol/L (22-29); Chloride 108 mmol/L (96-108); Cholesterol 194 mg/dL; Estimated Glomerular Filt Rate > 60; Glucose Random 107 mg/dL (60-115); HDL Cholesterol 66 mg/dL; LDL Cholesterol Calculated 117 mg/dl; Potassium 4.5 mmol/L (3.3-5.1); Sodium 140 mmol/L (135-145); Total Protein 7.1 g/dL (6.5-8.0); Triglycerides 59 mg/dL
[2021-11-09 14:32] LABS: H Pylori Breath Test Negative (Negative)
== END 2021-11-07 08:55 | disposition home or self-care (01) ==
LOC: HO.US 08:54
PROVIDERS: Physician Assistant Surgical; PCP Hospitalist; Visit Provider Surgery
DX: Z01.818 Encounter for other preprocedural examination (principal); K76.0 Fatty (change of) liver, not elsewhere classified; J45.909 Unspecified asthma, uncomplicated; I10 Essential (primary) hypertension; E66.9 Obesity, unspecified; Z68.37 Body mass index [BMI] 37.0-37.9, adult; K21.9 Gastro-esophageal reflux disease without esophagitis; G47.10 Hypersomnia, unspecified
CPT/HCPCS: 36415; 74246; 76705; 76981; 80053; 80061; 83013; 83036; 83525; 84443; 85025; 85610; 85730; 86140; 99211

== ENCOUNTER 2021-11-14 11:21 | Inpatient (IN) | payer OTHER, SELFPAY ==
[2021-11-07 12:01] VITALS: BMI 34.3
--- NOTE | 2021-11-10 09:00 | P.CONAN_ITS ---
Documented by User: Susana Kapadia NP 11/10/21 09:03 HPI - Anesthesia Eval Consult details Narrative: 30yo F for Gastrectomy Sleeve,EGD,poss diaphragmatic hernia,poss ventral hernia,poss open, s/p tubal 12/2020 with GA-ETT 7.5 PMFSH Active Problems Active Problems: All Active Problems (Updated 11/07/21 @ 11:59 by Debby Terry RN) Abnormal LFTs (Acute) Elevated aldolase level (Acute) Pelvic pain (Acute) Irregular menses (Acute) Vaginal discharge (Acute) Potential exposure to STD (Acute) control counseling (Acute) BMI 37.0-37.9, adult (Acute) Vitamin D deficiency (Acute) Hypertension (Acute) BMI 38.0-38.9,adult (Acute) Vitamin B1 deficiency (Acute) Vitamin A deficiency (Acute) BMI 36.0-36.9,adult (Acute) BMI 34.0-34.9,adult (Acute) Hypersomnolence (Acute) Anxiety (Acute) Depression (Acute) Asthma (Acute) Steatosis, liver (Acute) Obesity (Acute) Sjogren's syndrome (Acute) Dysphagia (Acute) GERD (gastroesophageal reflux disease) (Acute) Myositis (Acute) Past Medical History Medical History Anxiety Asthma COVID-19 vaccine series completed Depression DJD (degenerative joint disease) Dysphagia Family history of DVT GERD (gastroesophageal reflux disease) Hypersomnolence Keratoconjunctivitis Menorrhagia Myositis Obesity Sjogren's syndrome Steatosis, liver Family History Family History Mother Clotting disorder History of high blood pressure Father No problems noted. Brother No problems noted. Brother No problems noted. Brother No problems noted. Sister No problems noted. Son No problems noted. Son No problems noted. Daughter No problems noted. Daughter No problems noted. Other Mental health disorder Substance use disorder Family history of problems with anesthesia: No Surgical History Surgical History History of axillary surgery Hx of biopsy Hx of endoscopy Hx of excision of dermoid cyst Hx of tubal ligation Hx of wisdom tooth extraction History of Problems with Anesthesia: No Social History Social History Household Members: Family Housing: Condominium Are you a primary acute care assistant to a significant other at home: Yes (sister will be staying w/patient for one week post surgery) Do you presently have visiting nurse or other home services: No Alcohol intake: never Patient Tobacco Use Status: Never used Tobacco Use of substances other than those prescribed or required for medical reasons: No Have you been hit, kicked, punched, or otherwise hurt by someone within the past year? If so, by whom?: No Are you DNR?: No Advance Directives: No (no official HCP-sister is primary contact) Advance Directives Information Provided: Yes (sister-Candy Obando ) Advance Directives on File: No Recently lost weight without trying: No Eating poorly because of decreased appetite: No Nutrition Risks: No Nutritional Risk Patient : No FDLMP: 11/14/20 : No Poor oral hygiene: No Current occupational status: unemployed Gender identity: Female Meds Allergies Allergy/AdvReac Type Severity Reaction Status Date / Time No Known Allergies Allergy Verified 11/06/21 13:45 Home Medications Medication Instructions Recorded Confirmed Last Taken Type albuterol sulfate 90 mcg/actuation 2 puff INHALATION Q6H PRN 09/04/21 11/07/21 Unknown History aerosol inhaler Exam Exam Date and Time: November 10, 2021 0900 Height,Weight and Vital Signs: Height 5 ft 9 in Weight 105.46 kg Pertinent Lab Results Pertinent Lab Results: Laboratory Tests 11/07/21 09:20 Blood Type A Positive Antibody Screen NEGATIVE Laboratory Tests 11/07/21 11/07/21 09:24 09:24 WBC 4.3 L Hgb 11.7 L Hct 37.3 Plt Count 297 Sodium 140 Potassium 4.5 Chloride 108 Carbon Dioxide 25 BUN 10 Creatinine 0.75 Narrative Narrative: EKG 08/2021 Vent. Rate : 069 BPM ? ? Atrial Rate : 069 BPM ?? P-R Int : 150 ms? QRS Dur : 082 ms ? ? QT Int : 400 ms ? ? ? P-R-T Axes : 033 057 040 degrees ?? QTc Int : 428 ms ? Normal sinus rhythm with sinus arrhythmia Normal ECG When compared with ECG of 05-APR-2020 15:40, No significant change was found Assessment and Plan Assessment Anesthesia Assessment: Chart Reviewed Final Anesthetic Review Family History of Problems with Anesthesia: No History of Problems with Anesthesia: No Documented by User: Olga Post MD 11/14/21 12:52 PMF Active Problems Active Problems: All Active Problems (Updated 11/07/21 @ 11:59 by Debby Terry RN) Abnormal LFTs (Acute) Elevated aldolase level (Acute) Pelvic pain (Acute) Irregular menses (Acute) Vaginal discharge (Acute) Potential exposure to STD (Acute) control counseling (Acute) BMI 37.0-37.9, adult (Acute) Vitamin D deficiency (Acute) Hypertension (Acute) BMI 38.0-38.9,adult (Acute) Vitamin B1 deficiency (Acute) Vitamin A deficiency (Acute) BMI 36.0-36.9,adult (Acute) BMI 34.0-34.9,adult (Acute) Hypersomnolence (Acute) Anxiety (Acute) Depression (Acute) Asthma (Acute) Steatosis, liver (Acute) Obesity (Acute) Sjogren's syndrome (Acute) Dysphagia (Acute) GERD (gastroesophageal reflux disease) (Acute) Myositis (Acute)- symptoms of thigh pain about 2 years ago. Had biopsy. Symptoms have since resolved Denies TRAY Past Medical History Medical History Anxiety Asthma COVID-19 vaccine series completed Depression DJD (degenerative joint disease) Dysphagia Family history of DVT GERD (gastroesophageal reflux disease) Hypersomnolence Keratoconjunctivitis Menorrhagia Myositis Obesity Sjogren's syndrome Steatosis, liver Family History Family History Mother Clotting disorder History of high blood pressure Father No problems noted. Brother No problems noted. Brother No problems noted. Brother No problems noted. Sister No problems noted. Son No problems noted. Son No problems noted. Daughter No problems noted. Daughter No problems noted. Other Mental health disorder Substance use disorder Surgical History Surgical History History of axillary surgery Hx of biopsy Hx of endoscopy Hx of excision of dermoid cyst Hx of tubal ligation Hx of wisdom tooth extraction Social History Social History Household Members: Family Housing: Condominium Are you a primary acute care assistant to a significant other at home: Yes (sister will be staying w/patient for one week post surgery) Do you presently have visiting nurse or other home services: No Alcohol intake: never Patient Tobacco Use Status: Never used Tobacco Use of substances other than those prescribed or required for medical reasons: No Have you been hit, kicked, punched, or otherwise hurt by someone within the past year? If so, by whom?: No Are you DNR?: No Advance Directives: No (no official HCP-sister is primary contact) Advance Directives Information Provided: Yes (sister-Candy Obando ) Advance Directives on File: No Recently lost weight without trying: No Eating poorly because of decreased appetite: No Nutrition Risks: No Nutritional Risk Patient : No FDLMP: 11/14/20 : No Poor oral hygiene: No Current occupational status: unemployed Gender identity: Female Meds Allergies Allergy/AdvReac Type Severity Reaction Status Date / Time No Known Allergies Allergy Verified 11/06/21 13:45 Home Medications Medication Instructions Recorded Confirmed Last Taken Type albuterol sulfate 90 mcg/actuation 2 puff INHALATION Q6H PRN 09/04/21 11/07/21 Unknown History aerosol inhaler Exam Height,Weight and Vital Signs: Height 5 ft 9 in Weight 105.46 kg Vital Signs Temp Pulse Resp BP Pulse Ox 11/14/21 11:23 97.8 F 106 H 20 116/74 97 Pertinent Lab Results Pertinent Lab Results: Laboratory Tests 11/07/21 09:20 Blood Type A Positive Antibody Screen NEGATIVE Laboratory Tests 11/07/21 11/07/21 09:24 09:24 WBC 4.3 L Hgb 11.7 L Hct 37.3 Plt Count 297 Sodium 140 Potassium 4.5 Chloride 108 Carbon Dioxide 25 BUN 10 Creatinine 0.75 Laboratory Results - last 24 hr 11/14/21 11:12 COVID-19 ([facility]) Negative COVID-19 Clin Com See Note Airway Mallampati Class: II TM Dist: >3cm Neck ROM: Full Loose/Missing/Broken Teeth: Yes (Dental extractions) Heart: RRR Lungs: CTAB Assessment and Plan Assessment Anesthesia Assessment: Anesthesia Plan Discussed Final Anesthetic Review NPO: Yes ASA Class: III Final Preanesthetic Review: No Changes in Pt Med Stat, Meds/Allgs Chart Reviewed, Consent Obtained/Reviewed and Anes Risks/Benef Reviewed Patient Risk: Intermediate Procedure Risk: Intermediate Assessment/Block/Sedation in SS: Assess/Block/Sedation-SS Anesthetic Plan Anesthetic Plan: GA Disposition: Standard PACU and Inp. Admit - Standard Bed
--- NOTE | 2021-11-11 11:20 | MHC.SHP ---
Pre-Procedural Eval Section A Date of Service: 11/11/21 The patient is an INPATIENT: Yes The History & Physical has been completed within 30 days and I have reviewed it.: Yes Section B Chief Complaint: obesity Relevant Family History (Specify if Yes): No Relevant Social History: None Present Medications: None Medical History: No relevant PMH History of Previous Operations: No relevant previous surgery Allergies: Allergies Allergy/AdvReac Type Severity Reaction Status Date / Time No Known Allergies Allergy Verified 11/06/21 13:45 Review of Systems Sugical H&P ROS: Negative: Constitution, Cardiovascular, Respiratory, Neurological, Psychiatric, Hem-Onc, Allergic/Immunologic, Gastrointestinal, Genitourinary, Musculoskeletal, Integumentary, Endocrine and Eyes/Ears/Nose/Throat Exam Surgical H&P Exam: Normal: HEENT, Normal: Heart, Normal: Lungs, Normal: Extremities, Normal: Abdomen, Normal: Skin and Normal: Neurological Plan Diagnosis/Plan: Unchanged I have reviewed the history and physical and performed a pertinent physical examination on my patient. No changes have occurred unless specified.
[2021-11-14] VITALS (15 sets, daily range): BP systolic 116–157; BP diastolic 74–103; PULSE 92–114; RESP 16–25; TEMP 36.3–37.1; O2SAT 97–100
[2021-11-14 11:41] LABS: COVID-19 Test Negative (Negative)
[2021-11-14] MEDS: Lactated Ringers 1,000 ML 100 ML IVCONT ×2 (11:50→16:46)
[2021-11-14] MEDS: Lactated Ringers 1,000 ML 999 ML IV (11:50)
--- NOTE | 2021-11-14 12:42 | PM.PNGS ---
Subjective Subjective Date of Service: 11/15/21 Interval history: Patient has mild incisional pain, but was able to ambulate and use the incentive spirometer. She is tolerating phase 1 bariatric diet Physical Exam Vital Signs: Vital Signs: Last Vital Signs Temp 97.8 F 11/14/21 11:23 Pulse 106 H 11/14/21 11:23 Resp 20 11/14/21 11:23 BP 116/74 11/14/21 11:23 Pulse Ox 97 11/14/21 11:23 BMI result Body Mass Index 34.3 GI: Inspection: Yes normal to inspection, Yes incision (clean, dry and intact) and Yes obesity Extrem: Right lower extremity: normal to inspection (no calf tenderness) Left lower extremity: normal to inspection (no calf tenderness) Objective Data Active Medications Albuterol Sulfate (Albuterol Sulfate (0.083%) 2.5 Mg/3 Ml Vial.Neb) 2.5 mg INHALE ONCE PRN PRN Reason: Shortness of Breath/Wheezing Lactated Ringer's (Lr) 1,000 mls @ 100 mls/hr IVCONT .Q10H ANJALI Last Admin: 11/14/21 11:50 Dose: 100 mls/hr Documented by: YULIYA Labs CBC & Chem 7: 11/15/21 05:15 11/15/21 05:15 Labs: Laboratory Results - last 24 hr 11/14/21 11:12 COVID-19 ([facility]) Negative COVID-19 Clin Com See Note Procedures Date of Service Date of Service: 11/15/21 Progress Note: A&P Assessment and plan (1) Obesity: Status: Acute Assessment and Plan: s/p laparoscopic sleeve gastrectomy, lysis of adhesions repair of diaphragmatic hernia, and gastropexy Doing well Check am labs. If OK, will discharge home? (2) BMI 33.0-33.9,adult: (3) Abnormal LFTs: (4) GERD (gastroesophageal reflux disease): (5) Anxiety: Status: Acute (6) Depression: Status: Acute (7) Asthma: Status: Acute (8) Hypertension: Status: Acute (9) Sjogren's syndrome: Status: Acute (10) Steatosis, liver: Status: Acute (11) DJD (degenerative joint disease): (12) S/P laparoscopic sleeve gastrectomy: Status: Acute Fall Risk Details Current Medications: Current Medications Albuterol Sulfate (Albuterol Sulfate (0.083%) 2.5 Mg/3 Ml Vial.Neb) 2.5 mg INHALE ONCE PRN PRN Reason: Shortness of Breath/Wheezing Lactated Ringer's (Lr) 1,000 mls @ 100 mls/hr IVCONT .Q10H ANJALI Last Admin: 11/14/21 11:50 Dose: 100 mls/hr Documented by: Time Spent With Patient Time: Total time spent is greater than 50% in coordination of care (as documented) at patient's floor/unit and/or counseling patient: Time with patient: less than 15 minutes Quality Stroke Does the patient have a stroke diagnosis?: No VTE Prior VTE?: No VTE Risk Level:: Surgical - moderate VTE Device Contraindication: N/A - Device Ordered VTE Drug Contraindication: Treatment Not Indicated
--- NOTE | 2021-11-14 12:45 | PM.OP ---
Brief Operative Note Date of Service: 11/14/21 Pre-op diagnosis: Severe obesity with comorbidities (see below) Post-op diagnosis: same Procedure: INITIAL PATIENT BMI ON PRESENTATION AT OUR OFFICE: 37.9 kg/m2 LAST BMI BEFORE SURGERY: 33.3 kg/m2 COMORBIDITIES: hypertension, hyperinsulinemia, elevated LFTs, GERD, asthma, Sjorgen's syndrome, DJD, liver steatosis ?The patient presented to the Weight Management Program with significant obesity that was negatively impacting the patient's comorbidities as listed above.? The program is a phased program with a special focus on preoperative medical weight management to promote substantial weight loss and prepare the patients for the second phase of the program: bariatric surgery. The patient participated in an intensive weekly lifestyle ?intervention and exercise program during which the patient ?has lost between the initial office visit and the last preoperative visit 32,1lbs, or 12.5% of initial actual body weight. It was deemed appropriate for the patient to now have bariatric surgery. In light of the current Covid-19 pandemic and the well documented strong association of obesity and increased risk of worse outcomes if infected with Covid-19 (REFERENCES:https://pubmed.ncbi.nlm.nih.gov/12032257/,?https://pubmed.ncbi.nlm.nih.gov/15772244/), any delay in undergoing bariatric surgery may lead to the patient's worsening health condition and increased?risk of more severe Covid-19 disease if infected. In addition a recent?study from [facility] published in [facility] on 09/18/2021 ([email or web address]) found that, among patients with obesity, substantial weight loss achieved with surgery was associated with improved outcomes of COVID-19 infection. The findings suggest that obesity can be a modifiable risk factor for the severity of COVID-19 infection. In addition, the patient met the BMI-criteria for bariatric surgery based on the BMI on initial presentation. The patient should not be penalized for achieving such weight loss because ?it is not sustainable long-term without surgical intervention and it was achieved in preparation for bariatric surgery ?under my direction and based on my published research ([email or web address]).[email or web address] and?https://www.soard.org/article/[email or web address](61)30618-X/pdf) ?that a 10% preoperative weight loss improves long-term weight loss after surgery and reduces perioperative complications.? Insurance carriers such as [facility] have endorsed my recommendations ?and have included in their policies criteria to include a 10% preoperative weight loss requirement. PROCEDURE: Esophago-gastroscopy, laparoscopic sleeve gastrectomy and laparoscopic gastropexy INDICATIONS: This is a 30 year-old female who was electively scheduled for laparoscopic, possibly open sleeve gastrectomy. The risks and complications of the procedure were discussed with the patient in advance, particularly the possibility of ; pulmonary embolism; staple line leak; bleeding; GERD; cardiac, pulmonary, or renal complications; as well as long-term problems such as insufficient weight loss, vitamin deficiency, strictures, or ulcers. The patient understood all the risks, and was in agreement to proceed with surgery. DESCRIPTION OF PROCEDURE: After informed consent was obtained from the patient, the patient was given preoperative antibiotics, and was transferred to the operating room. After successful induction of general anesthesia, pneumatic compression devices were placed on both lower extremities. An upper endoscopy was performed next. The oropharynx and esophagus appeared to be within normal limits. There was no diaphragmatic hernia present consistent with the findings of the preoperative upper GI. The stomach was entered. Then after all fluid and air were suctioned and the stomach was fully decompressed, the scope was withdrawn and secured in the mid esophagus. The patient was then prepped and draped in the usual sterile manner, and abdominal access was established at the right upper quadrant with the Lg technique. A 12 mm blunt port was inserted, and the abdomen was insufflated with CO2 to a pressure of 15 mmHg. Under direct visualization, additional ports were placed, specifically two 5 mm Versi-step ports to the left upper quadrant, and a 5 mm Versi-Step port to the right upper quadrant. 1% lidocaine plain was used to infiltrate all port sites as well as all fascia defects. Following that, the patient was placed in a steep reverse Trendelenburg position. An additional 5 mm port was placed to the right flank for the Mediflex retractor that was used to retract the left lobe of the liver. The gastro-esophageal fat pad was opened with the ultrasonic device (Thunderbeat, Olympus) and the anterior esophagus and hiatus were exposed. The angle of His was opened with the ultrasonic device the fundus of the stomach from any diaphragmatic and splenic attachments. I then opened the gastrocolic ligament between the transverse colon and the greater curvature of the stomach with the ultrasonic device to enter the lesser sac and facilitate the ligation of the short gastric vessels. I started at a mid-point along the greater curvature and using the Thunderbeat, all short gastric vessels were divided all the way to the angle of His until the left afshin was completely dissected at its entirety. I then divided the gastro-colic ligament distally to a distance of about 3-4 cm proximal to the esophagus. The stomach was then divided transversely with one Endo KARLOS-45 purple, and 5 KARLOS-60 articulating orange loads using the AEON stapler and loads. Every effort was made that the gastric sleeve had a tubular shape and an even caliber throughout. Once the sleeve resection was completed, the staple line of the gastric sleeve was reinforced with Hemoclips. The resected stomach was retrieved without difficulty from the Lg port. A gastropexy was then performed in order to prevent postoperative GERD and partial gastric volvulus. Several interrupted 2.0 Surgidac sutures were placed between the sleeve's staple line and the previously divided greater omentum and gastro-colic ligament using the Endo-Stitch device. ?An upper endoscopy was performed. There was no narrowing at the GE junction. The scope was easily advanced all the way to the pylorus which was clearly visualized. There was no narrowing anywhere and the sleeve's caliber was even throughout. The sleeve's staple line was inspected and there was no evidence of ischemia, bleeding or dehiscence. At that point the gastroscope was withdrawn from the patient?s mouth while we were decompressing the bowel and the stomach from any remaining air. I looked into the lesser sac to see how the sleeve was situating and it was situating well. There was no bleeding from the staple line, spleen, or short gastric vessels. The Mediflex retractor was removed, and the undersurface of the liver was inspected and there was no bleeding. The patient was placed in supine position. I closed the fascial defect of the 12 mm port site with a figure of eight #1 Polysorb suture. Then 100 cc 0.25 % Marcaine plain with 10 mg of Dexamethasone were used to infiltrate the fascial closure as well as all skin incisions. At this point, the abdomen was deflated, all ports were removed under direct vision, and no bleeding was noted from any of the port sites. The skin incisions were irrigated with saline and were closed with 4-0 absorbable monofilament sutures. Steri-Strips and OpSites were used to cover all incisions. The patient was extubated and was transferred in stable condition to the recovery room for further care. I was present and performed all stewart parts of the procedure. Ms. Terryson was the dental assistant. There were no residents to assist with this case. Eddie Madden MD, PhD, FACS Surgeon: Simon Madden MD Anesthesia: GETA, local and other (TAP block) Was an Table Assembler used for this Procedure?: No Table Assembler: Rosi Graza Estimated blood loss (mL): 0 IV fluids (mL): 3,500 Urine output (mL): 0 (No Agarwal to record) Pathology: other (Stomach) Condition: stable Disposition: PACU
[2021-11-14] MEDS: ceFAZolin Sodium/Dextrose,Iso 2 GM/50 ML PIGGYBACK IV ×2 (13:00→18:09)
--- NOTE | 2021-11-14 15:06 | P.DS_ITS ---
DS: Providers Provider Date of Service: 11/15/21 Date of admission: 11/14/21 11:21 Primary care physician: Roya Lainez NP DS: Diagnosis Discharge Diagnosis (1) Obesity: Status: Acute (2) BMI 33.0-33.9,adult: (3) Abnormal LFTs: (4) GERD (gastroesophageal reflux disease): (5) Anxiety: Status: Acute (6) Depression: Status: Acute (7) Asthma: Status: Acute (8) Hypertension: Status: Acute (9) Sjogren's syndrome: Status: Acute (10) Steatosis, liver: Status: Acute (11) DJD (degenerative joint disease): DS: Summary Hospital Course Hospital Course: ADMITTING DIAGNOSIS: morbid obesity, HTN, asthma, anx/depression, Sjogren's DISCHARGE DIAGNOSIS: same, s/p laparoscopic sleeve gastrectomy PAST SURGICAL HISTORY: none PROCEDURE: upper endoscopy, laparoscopic sleeve gastrectomy DISCHARGE SUMMARY: History of Present Illness: The patient is a 30 year-old woman with a BMI of 37.8 kg/m2 and associated co- morbidities as described above. The patient had extensive work-up,lost 23.9 lbs preoperatively and was electively scheduled for laparoscopic, possible open sleeve gastrectomy and gastropexy. Risks and complications of the surgery were discussed with the patient in advance, particularly the possibility of , pulmonary embolism, anastomotic leak, bleeding, bowel injury, GERD, cardiac, renal or pulmonary complications. The patient understood all the risks and was in agreement with the surgical plan. Hospital Course: The patient underwent an uneventful laparoscopic sleeve gastrectomy with gastropexy on the day of admission. Postoperatively, the patient was transferred to the surgical floor. The patient received IV Acetaminophen and IV dilaudid for pain control. Patient was started on bariatric phase 1 diet POD #0. On postoperative day one, the patient was feeling well without nausea, vomiting, fevers, or tachycardia. The patient had some mild incisional pain and the abdomen was soft. On the morning of postoperative day one, the patient was continued on 1 ounce of water or ice every half hour. During the day, the patient did fairly well, having some incisional pain, but able to ambulate adequately and to tolerate liquids well. Since the patient is doing well, we decided that the patient was ready to be discharged. The patient was given instructions to follow-up with me next week and to call my office for any fever over 101, persistent abdominal pain, nausea, vomiting, GERD, symptoms of DVT such as calf tenderness, or leg swelling, or pulmonary embolism such as chest pain or shortness of breath. The patient was also instructed to drink 40-60 ounces of liquids per day using the 1-ounce cups. The patient had been given prescriptions for Tylenol for pain, Zofran prn for nausea, and pantoprazole and carafate previously. The patient was encouraged to ambulate and use the incentive spirometer. The patient was allowed to shower, but no baths, and encouraged to stay active at home. All of these instructions were given to the patient personally. All questions were answered and the patient understood all instructions, the instructions were also given to the patient in print. Time Spent with Patient Time attestation: Total time spent providing and/or coordinating discharge services: Discharge coordination time: Less than 30 minutes Quality: Stroke Does the patient have a stroke diagnosis?: No Physical Exam Vital Signs: Vital Signs: Last Vital Signs Temp 97.8 F 11/14/21 11:23 Pulse 106 H 11/14/21 11:23 Resp 20 11/14/21 11:23 BP 116/74 11/14/21 11:23 Pulse Ox 97 11/14/21 11:23 BMI result Body Mass Index 34.3 DS: Data Data Completed and Pending Pending studies at discharge: Pending at discharge 11/14/21 14:21 Surgical [PTH] Routine Labs on day of discharge: Laboratory Results - last 24 hr 11/14/21 11:12 COVID-19 ([facility]) Negative COVID-19 Clin Com See Note Discharge Plan Discharge Anticipated Discharge Date/Time: 11/15/21 11:03 Patient Disposition: Home, Self-Care Discharge Diagnosis: s/p sleeve gastrectomy Referrals: Roya Lainez NP [Primary Care Provider] - 1 Week Discharge Medications: Continued lisinopril 2.5 mg tablet 2.5 mg PO DAILY Qty: 30 2RF acetaminophen 650 mg tablet extended release 650 mg PO Q8H Qty: 90 1RF montelukast [Singulair] 10 mg tablet 10 mg PO BEDTIME 30 Days Qty: 30 5RF albuterol sulfate 90 mcg/actuation HFA aerosol inhaler 2 puff inhalation Q6H PRN (Reason: Wheezing) 0RF pantoprazole 40 mg tablet,delayed release (DR/EC) 40 mg PO DAILY Qty: 30 2RF sucralfate 100 mg/mL suspension 10 ml PO BID Qty: 400 2RF ondansetron HCl 4 mg tablet 4 mg PO Q12H Qty: 20 0RF Discontinued cholecalciferol (vitamin D3) 125 mcg (5,000 unit) capsule 125 mcg PO DAILY Qty: 30 2RF thiamine HCl (vitamin B1) 100 mg tablet 100 mg PO DAILY Qty: 30 2RF vitamin A palmitate 10,000 unit capsule 10,000 unit PO .COMPLEX Qty: 30 2RF Rx Instructions: 10,000 units PO one per day; polyethylene glycol 3350 [Miralax] 17 gram powder in packet 17 g PO DAILY Qty: 14 0RF Rx Instructions: Mix each packet with 8oz of water and do 7 packets on 11/12/21 and another 7 packets on 11/13/21 Discharge Orders: Discharge Order (Routine); Ordered 11/15/21 Ordered By: Simon Madden Diet: other Activity on Discharge: No heavy lifting Stand Alone Forms: Patient Portal Discharge page Care Plan Goals: weight loss Health Concerns: obesity Plan of Treatment: No tub baths, sex or returning to work until discussed at first post op appointment. No exercise, alcohol, tobacco or illegal drug use. Continue to use incentive spirometer hourly while awake. Walk in home for 5- 10 minutes every 2 hours during the first week. Continue phase 1 diet today and start phase 2 diet tomorrow morning. Follow all instructions in the bariatric handbook and call with any questions. 1. Please call your doctor or come back to the emergency room should any new symptoms arise. 2. You will receive a courtesy call from [facility] 24-48 hours after discharge. 3. Activity: abstain from alcohol, practice limited stair climbing, no bending, no driving, no exercise, no illicit substances, no lifting, no sex, no tub bath, no work. 4. Diet: continue as discussed with Dr. Madden. 5. Dressing Change/Wound Care: Do not change or remove surgical dressings unless they are wet or soiled. 6. Call your doctor if: - Your temperature exceeds 101.5 F - You experience excessive pain or swelling - You have an unexpected reaction to medication - You have excessive bleeding - You experience continued vomiting/nausea - Your incision begins to separate - Your incision shows signs of infection such as increased redness, swelling, excessive pain, heat, or drainage (light blood or clear fluid is normal) 7. General instructions: No lifting greater than 5 lbs for the next 4 weeks[address] within 24 hours of taking narcotic pain medications. If you do not move your bowels in the next 2 days, please take milk of magnesia over the counter. Please follow the post op diet and do not advance your diet until you are seen in the office in about 2 weeks. Please walk around your home every hour or two to prevent blood clots from forming in your legs. You do not need to wake from sleeping to walk. Please sleep in a bed or couch to prevent kinking at the hips and knees. Please take your incentive spirometer (your lung software sales representative) home with you and use it for the next few days to prevent pneumonias. You may shower, no hot tubs, baths or swimming pools. Please call the office with any questions or concerns such as increasing abdominal pain, fever, chills, shortness of breath, chest pain, leg pain or swelling, or redness or drainage from your incisions. Do not hesitate to contact the office with any questions at . The patient's medical history has been reviewed and they are considered low risk for post op DVT and therefore DVT prophylaxis is not considered necessary. Travel after surgery was reviewed. The patient has not disclosed any travel plans during the first 30 days after surgery and they have been advised that within the first 30 days after surgery any bus, plane, train or car travel over 2 hours in duration is contraindicated due to the possibility of developing blood clots from immobility. Any travel, needs to include periods of ambulation of 10 minutes in duration every 2 hours. The patient was instructed to discuss any plans for travel during this period with their bariatric surgeon. Assessment: stable, post op sleeve gastrectomy Discharge Date/Time: 11/15/21 09:14
[2021-11-14] MEDS: Famotidine/PF 20 MG/2 ML VIAL IVPUSH (15:28)
[2021-11-14] MEDS: fentaNYL citrate/PF 100 MCG/2 ML VIAL 25 MCG IVPUSH ×4 (15:30→16:00)
--- NOTE | 2021-11-14 15:32 | PHA.MEDREC ---
Pharmacy Consult ? Medication Reconciliation Nursing has completed the medication reconciliation and pharmacy has reviewed.
[2021-11-14 15:33] LABS: Hematocrit 36.5 % (37.0-47.0); Hemoglobin 11.8 g/dl (12.0-16.0)
[2021-11-14 15:53] LABS: Anion Gap 17 (12-20); Blood Urea Nitrogen 8 mg/dL (9-16); Calcium 9.5 mg/dL (8.4-10.2); Carbon Dioxide 17 mmol/L (22-29); Chloride 106 mmol/L (96-108); Creatinine Clr Calc Pharmacy 128.9; Estimated Glomerular Filt Rate > 60; Glucose Random 99 mg/dL (60-115); Potassium 4.4 mmol/L (3.3-5.1); Sodium 136 mmol/L (135-145)
[2021-11-14] MEDS: Montelukast Sodium 10 MG TABLET PO (19:44)
[2021-11-15] MEDS: ondansetron HCL 4 MG/2 ML VIAL IVPUSH ×2 (01:30→07:20)
[2021-11-15] MEDS: Lactated Ringers 1,000 ML 100 ML IVCONT (01:31)
[2021-11-15 03:52] VITALS: BP 136/79; PULSE 85; RESP 17; TEMP 36.8; O2SAT 98
[2021-11-15 05:53] LABS: Basophils Percent Auto 0.1 % (0-2); Hematocrit 37.3 % (37.0-47.0); Hemoglobin 12.1 g/dl (12.0-16.0); Imm Gran Abs Auto 0.06 X10*3/uL (0.00-0.03); Imm Gran Pct Auto 0.6 % (0.0-0.4); Lymphocytes Absolute Auto 0.6 X10*3/uL (1.2-4.9); Lymphocytes Percent Auto 5.8 % (20-40); MANUAL DIFF FLAG SCAN; Mean Corpuscular HGB Conc 32.4 g/dl (31.0-35.0); Mean Corpuscular Hemoglobin 27.1 pg (27.0-33.0); Mean Corpuscular Volume 83.6 fL (80.0-98.0); Mean Platelet Volume 10.5 fL (9.4-12.3); Monocytes Absolute Auto 0.3 X10*3/uL (0.1-1.2); Monocytes Percent Auto 2.7 % (2-11); Neutrophils Absolute Auto 9.3 x10*3/uL (2.0-8.3); Neutrophils Percent Auto 90.8 % (45-73); Platelet Count 311 X10*3/uL (160-400); Red Blood Count 4.46 X10*6/uL (4.20-5.50); Red Cell Distribution Width 14.7 % (11.0-16.0); SCAN SMEAR FLAG 1; White Blood Count 10.2 X10*3/uL (4.8-10.8)
[2021-11-15 06:17] LABS: Anion Gap 17 (12-20); Blood Urea Nitrogen 5 mg/dL (9-16); Calcium 9.9 mg/dL (8.4-10.2); Carbon Dioxide 16 mmol/L (22-29); Chloride 107 mmol/L (96-108); Glucose Random 117 mg/dL (60-115); Potassium 4.6 mmol/L (3.3-5.1); SLIDE REVIEW VERIFIED; Sodium 135 mmol/L (135-145)
[2021-11-15 06:28] LABS: Creatinine Clr Calc Pharmacy 146.3; Estimated Glomerular Filt Rate > 60
[2021-11-15 07:07] VITALS: BP 135/79; PULSE 99; RESP 18; TEMP 37.1; O2SAT 99
[2021-11-15] MEDS: lisinopriL 2.5 MG TABLET PO (07:20)
[2021-11-15] MEDS: Famotidine/PF 20 MG/2 ML VIAL IVPUSH (07:20)
--- NOTE | 2021-11-15 07:46 | HO.POSTANES ---
Post Anesthesia Evaluation Post Anesthesia Evaluation Vital Signs: Vital Signs Temp Pulse Resp BP Pulse Ox 11/15/21 07:07 98.7 F 99 18 135/79 99 11/15/21 03:52 98.2 F 85 17 136/79 98 11/14/21 23:31 98.4 F 92 17 147/89 H 99 Anesthesia: General Endotracheal-GETA Mental Status: Awake Pain Control: Satisfactory Nausea/Vomiting: None Hydration: Adequate Anesthesia-Related Issues: No Anes. Related Issues
--- NOTE | 2021-11-15 09:18 | MHC.CM.PN ---
EMR REVIEWED, CM ATTEMPTED TO MEET W/PT AND DELIVER IMM HOWEVER PT HAD ALREADY DISCHARGED HOME SELF-CARE W/SELF ARRANGED TRANSPORT.
== END 2021-11-15 09:14 | disposition home or self-care (01) | DRG 621 ==
LOC: HO.SSSA 15:06 → HO.S3 15:36
PROVIDERS: Nurse Practitioner; Physician Assistant; Admitting Provider Surgery; PCP Hospitalist; Visit Provider Surgery
PROC: 0DB64Z3 Excision of Stomach, Percutaneous Endoscopic Approach, Vertical (ICD-10-PCS; CPT 43845; principal; 2021-11-14 13:00)
DX: E66.01 Morbid (severe) obesity due to excess calories (principal); Z68.33 Body mass index [BMI] 33.0-33.9, adult; I10 Essential (primary) hypertension; E16.1 Other hypoglycemia; K21.9 Gastro-esophageal reflux disease without esophagitis; M35.00 Sjogren syndrome, unspecified; M19.90 Unspecified osteoarthritis, unspecified site; K76.0 Fatty (change of) liver, not elsewhere classified; F41.9 Anxiety disorder, unspecified; J45.909 Unspecified asthma, uncomplicated; Z20.822 Contact with and (suspected) exposure to COVID-19; Z79.899 Other long term (current) drug therapy
CPT/HCPCS: 36415; 80048; 85014; 85018; 85025; 86850; 86900; 86901; 87635; 88307; 88342; 99024; A4649; J0131; J0690; J1100; J1170; J2250; J2370; J2405; J2550; J3010

== ENCOUNTER → 2021-11-21 15:18 | Outpatient (BNVA) | payer OTHER, SELFPAY | PROVIDERS: PCP Hospitalist; Referring Provider Hospitalist; Visit Provider Surgery | DX: Z13.89 Encounter for screening for other disorder (principal) ==

== ENCOUNTER → 2021-11-22 11:57 | Outpatient (BNVA) | payer OTHER, SELFPAY | PROVIDERS: PCP Hospitalist; Referring Provider Hospitalist; Visit Provider Surgery | DX: E66.9 Obesity, unspecified (principal); Z68.32 Body mass index [BMI] 32.0-32.9, adult | CPT/HCPCS: 99212 ==

== ENCOUNTER → 2021-12-22 08:08 | Outpatient (BNVA) | payer OTHER, SELFPAY | PROVIDERS: PCP Hospitalist; Visit Provider Surgery | DX: Z13.89 Encounter for screening for other disorder (principal) ==

== ENCOUNTER → 2021-12-29 15:45 | Outpatient (BNVA) | payer OTHER, SELFPAY | PROVIDERS: PCP Hospitalist; Visit Provider Dietitian, Registered | DX: E66.9 Obesity, unspecified (principal); Z68.30 Body mass index [BMI] 30.0-30.9, adult | CPT/HCPCS: 97803 ==

== ENCOUNTER → 2022-01-09 11:15 | Outpatient (BNVA) | payer OTHER, SELFPAY | PROVIDERS: PCP Hospitalist; Visit Provider Counselor Mental Health | DX: F41.8 Other specified anxiety disorders (principal); E66.9 Obesity, unspecified | CPT/HCPCS: 90834 ==

== ENCOUNTER → 2022-01-23 11:00 | Outpatient (BNVA) | payer OTHER, SELFPAY | PROVIDERS: PCP Hospitalist; Visit Provider Counselor Mental Health | DX: F41.8 Other specified anxiety disorders (principal); Z98.84 Bariatric surgery status | CPT/HCPCS: 90834 ==

== ENCOUNTER → 2022-01-29 14:00 | Outpatient (BNVA) | payer OTHER, SELFPAY | PROVIDERS: PCP Hospitalist; Visit Provider Counselor Mental Health | DX: F41.8 Other specified anxiety disorders (principal) | CPT/HCPCS: 90834 ==

== ENCOUNTER → 2022-02-07 13:45 | Outpatient (BNVA) | payer OTHER, SELFPAY | PROVIDERS: PCP Hospitalist; Visit Provider Counselor Mental Health | DX: F41.8 Other specified anxiety disorders (principal) | CPT/HCPCS: 90834 ==

== ENCOUNTER → 2022-03-20 10:00 | Outpatient (BNVA) | payer OTHER, SELFPAY | PROVIDERS: PCP Hospitalist; Visit Provider Counselor Mental Health | DX: F41.8 Other specified anxiety disorders (principal); E66.9 Obesity, unspecified; Z98.84 Bariatric surgery status | CPT/HCPCS: 90832 ==

== ENCOUNTER → 2022-03-21 14:56 | Outpatient (BNVA) | payer OTHER, SELFPAY | PROVIDERS: PCP Hospitalist; Referring Provider Physician Assistant Surgical; Visit Provider Dietitian, Registered | DX: E66.9 Obesity, unspecified (principal); Z68.26 Body mass index [BMI] 26.0-26.9, adult | CPT/HCPCS: 97803 ==

== ENCOUNTER 2022-03-23 15:53 | Outpatient (REF) | payer OTHER, SELFPAY ==
[2022-03-23 16:50] LABS: Alanine Aminotransferase 18 U/L (0-31); Albumin Level 4.7 g/dL (3.5-5.0); Alkaline Phosphatase 73 U/L (39-117); Aspartate Amino Transferase 21 U/L (5-31); Bilirubin Direct 0.6 mg/dL (0.0-0.5); Bilirubin Total 1.7 mg/dL (0.0-1.0); Total Protein 7.6 g/dL (6.5-8.0)
== END 2022-03-23 15:54 | disposition home or self-care (01) ==
LOC: HO.LAB 15:53
PROVIDERS: PCP Hospitalist; Visit Provider Physician Assistant Surgical
DX: R10.11 Right upper quadrant pain (principal); R42 Dizziness and giddiness; Z90.3 Acquired absence of stomach [part of]
CPT/HCPCS: 36415; 80076; 99212

== ENCOUNTER 2022-05-15 08:56 | Outpatient (REF) | payer OTHER, SELFPAY ==
--- NOTE | ~2022-05-15 | US_ITS ---
EXAMINATION: US ABDOMEN LIMITED CLINICAL INFORMATION: Right upper quadrant pain. COMPARISON: Ultrasound abdomen complete 11/07/2021 and 05/02/2020. TECHNIQUE: Real-time imaging of the right upper quadrant abdominal viscera. FINDINGS: PANCREAS: Not well visualized due to bowel gas. LIVER: The liver is normal in size and contour. Liver echotexture is slightly increased probably representing fatty infiltration. There is no hepatic lesion. There is no intrahepatic biliary duct dilatation seen. GALLBLADDER: The gallbladder is physiologically distended without evidence of stones, polyps, or wall thickening. There is a small amount of sludge in the gallbladder. COMMON BILE DUCT: Normal in caliber measuring 0.3 cm in diameter. RIGHT KIDNEY: Normal. No hydronephrosis. No renal calculi or focal parenchymal lesions. The kidney measures 10.8 cm in maximum dimension. FREE FLUID: None. US/US abdomen limited IMPRESSION: Slightly echogenic liver probably representing fatty infiltration. Sludge in the gallbladder. No definite gallstone seen. Limited visualization of the pancreas.
== END 2022-05-15 08:57 | disposition home or self-care (01) ==
LOC: HO.US 08:56
PROVIDERS: Visit Provider Physician Assistant Surgical
DX: R10.11 Right upper quadrant pain (principal)
CPT/HCPCS: 76705

== ENCOUNTER 2023-09-26 01:44 | Emergency (ER) | payer OTHER, SELFPAY ==
[2023-09-26 01:45] VITALS: BP 150/86; PULSE 81; RESP 18; TEMP 36.8; O2SAT 100; BMI 23.6
[2023-09-26 02:14] LABS: MANUAL DIFF FLAG NO
[2023-09-26 02:15] LABS: Basophils Absolute Auto 0.1 X10*3/uL (0.0-0.2); Basophils Percent Auto 0.9 % (0-2); Eosinophils Absolute Auto 0.1 X10*3/uL (0.0-0.4); Eosinophils Percent Auto 1.4 % (0-4); Hemoglobin 8.3 g/dl (12.0-16.0); Imm Gran Abs Auto 0.01 X10*3/uL (0.00-0.03); Imm Gran Pct Auto 0.2 % (0.0-0.4); Lymphocytes Absolute Auto 2.7 X10*3/uL (1.2-4.9); Lymphocytes Percent Auto 47.8 % (20-40); Mean Corpuscular HGB Conc 29.6 g/dl (31.0-35.0); Mean Corpuscular Hemoglobin 21.1 pg (27.0-33.0); Mean Corpuscular Volume 71.2 fL (80.0-98.0); Mean Platelet Volume 9.7 fL (9.4-12.3); Monocytes Absolute Auto 0.4 X10*3/uL (0.1-1.2); Monocytes Percent Auto 7.8 % (2-11); Neutrophils Absolute Auto 2.3 x10*3/uL (2.0-8.3); Neutrophils Percent Auto 41.9 % (45-73); Platelet Count 336 X10*3/uL (160-400); Red Blood Count 3.93 X10*6/uL (4.20-5.50); Red Cell Distribution Width 17.2 % (11.0-16.0); White Blood Count 5.5 X10*3/uL (4.8-10.8)
[2023-09-26 02:28] LABS: Alanine Aminotransferase 6 U/L (0-31); Albumin Level 4.3 g/dL (3.5-5.0); Alkaline Phosphatase 57 U/L (39-117); Anion Gap 12 (12-20); Aspartate Amino Transferase 12 U/L (5-31); Bilirubin Total 0.7 mg/dL (0.0-1.0); Blood Urea Nitrogen 13 mg/dL (9-16); Calcium 9.5 mg/dL (8.4-10.2); Carbon Dioxide 23 mmol/L (22-29); Chloride 110 mmol/L (96-108); Creatinine Clr Calc Pharmacy 119.3; Estimated Glomerular Filt Rate > 60; Glucose Random 91 mg/dL (60-115); Potassium 4.1 mmol/L (3.3-5.1); Sodium 141 mmol/L (135-145); Total Protein 7.2 g/dL (6.5-8.0)
--- NOTE | 2023-09-26 03:29 | PC.NURSE ---
Pt noted to be anemic on initial labs. Repeat ordered, showing slight upward trend. On questioning, pt stated that she has a history of abnormal menstrual cycles, and was dx with iron deficient anemia, for which she was taking iron pills prior to her gastric bypass in 2021. She was told to stop taking the iron pills after her gastric bypass and has been untreated for anemia since. Pt remains asymptomatic for any concerns of bleeding.
[2023-09-26 06:25] VITALS: BP 126/79; PULSE 70; RESP 18; O2SAT 100
--- NOTE | 2023-09-26 06:34 | ED.GENADULT ---
HPI - General Adult General Chief complaint: General Medical Stated complaint: R Facial tingling/Ear issue Time Seen by Provider: 09/26/23 06:32 Source: patient Mode of arrival: ambulatory Limitations: no limitations History of Present Illness HPI narrative: Patient is a 32 year old assigned female at with a history of gastric bypass and anemia presenting to the emergency department today with right sided facial tinging and right sided ear pain. Patient states that over the last few hours she has had right sided face tingling and ear pain. Patient states that she initially lost some hearing in her right side but it has returned some. Patient denies any dizziness, lightheadedness, abdominal pain, nausea, vomiting, fever, chills, blurry vision, double vision, loss of vision, chest pain, difficulty breathing, shortness of breath, back pain, night sweats, pain with urination, increased urinary frequency, increased urinary urgency, blood in her urine or stool, syncope or a near syncopal episode, recent trauma or falls, bowel incontinence, bladder incontinence, bowel retention, bladder retention, or any other complaints at this time. Onset (ago): hour(s) Location: face and right (ear) Severity: mild Severity scale (1-10): 3 Pain Consistency: constant Relieving factors: none Exacerbating factors: none Associated symptoms: denies other symptoms Treatments prior to arrival: none Related Data Home Medications Medication Instructions Recorded Confirmed albuterol sulfate 90 mcg/actuation 2 puff inhalation Q6H PRN Wheezing 09/04/21 11/22/21 aerosol inhaler Previous Rx's Medication Instructions Recorded pantoprazole 40 mg tablet,delayed 40 mg PO DAILY #30 tabs 11/06/21 release sucralfate 100 mg/mL oral 10 ml PO BID #400 mL 11/06/21 suspension prednisone 20 mg tablet 20 mg PO DAILY 7 days #7 tabs 09/26/23 Allergies Allergy/AdvReac Type Severity Reaction Status Date / Time sulfamethoxazole Allergy Fever Verified 09/26/23 01:53 [From Bactrim] trimethoprim [From Bactrim] Allergy Fever Verified 09/26/23 01:53 Review of Systems Constitutional: Constitutional: Reports no additional constitutional complaints, Denies chills, Denies fever(s) and Denies night sweats Eyes: Eyes: Reports no additional eye complaints, Denies blurry vision, Denies change in vision, Denies diplopia, Denies eye discharge, Denies loss of vision and Denies eye pain ENT: Denies dizziness Comments: right ear pain, right sided facial tingling Cardiovascular: Cardiovascular: Reports no additional cardiovascular complaints, Denies chest pain, Denies lightheadedness, Denies Loss of Consciousness and Denies dyspnea Respiratory: Respiratory: Reports no additional respiratory complaints and Denies dyspnea Gastrointestinal: Gastrointestinal: Reports no additional gastrointestinal complaints, Denies abdominal pain, Denies melena, Denies hematochezia, Denies change in bowel habits and Denies change in stool character Genitourinary: Genitourinary: Denies hematuria, Denies urinary frequency, Denies dysuria, Denies urinary incontinence, Denies urinary hesitancy and Denies urinary urgency Musculoskeletal: Musculoskeletal: Reports no additional musculoskeletal complaints, Denies numbness and Denies tingling Neurologic: Denies dizziness, Denies loss of vision, Denies numbness and Denies tingling Psychiatric: Psychiatric: Reports no additional psychiatric complaints Endocrine: Endocrine: Reports no additional endocrine complaints Hematologic/Lymphatic: Hematologic/Lymphatic: Reports no additional hematologic/lymphatic complaints Allergic/Immunologic: Allergic/Immunologic: Reports no additional allergic/immunologic complaints [facility] Past Medical History Attestation statement: The following information was validated with the patient. Source: old records reviewed and nursing notes reviewed Onset Date is defined in the Problem List Problems that require an onset date and time if occurred within 24 hrs of arrival to the ED Aortic Dissection and Rupture; Neurologic impairment; Cardiopulmonary Arrest; Endotracheal Intubation; Insertion or Replacement of Mechanical Circulatory Assist Device Medical History DJD (degenerative joint disease) BMI 33.0-33.9,adult COVID-19 vaccine series completed Family history of DVT BMI 34.0-34.9,adult BMI 36.0-36.9,adult Vitamin A deficiency Vitamin B1 deficiency BMI 38.0-38.9,adult Vitamin D deficiency Hypersomnolence Anxiety Asthma Steatosis, liver BMI 37.0-37.9, adult Obesity Keratoconjunctivitis control counseling Potential exposure to STD Vaginal discharge Irregular menses Pelvic pain Sjogren's syndrome Elevated aldolase level Dysphagia GERD (gastroesophageal reflux disease) Myositis Abnormal LFTs Menorrhagia Depression Surgical History S/P laparoscopic sleeve gastrectomy Hx of excision of dermoid cyst Hx of biopsy Hx of tubal ligation Hx of wisdom tooth extraction Hx of endoscopy History of axillary surgery Family History Family History Mother Clotting disorder History of high blood pressure Father No problems noted. Brother No problems noted. Brother No problems noted. Brother No problems noted. Sister No problems noted. Son No problems noted. Son No problems noted. Daughter No problems noted. Daughter No problems noted. Other Mental health disorder Substance use disorder Social History Social History Household Members: Family Housing: Condominium Are you a primary healthcare educator to a significant other at home: Yes (sister will be staying w/patient for one week post surgery) Do you presently have visiting nurse or other home services: No Alcohol intake: never Patient Tobacco Use Status: Never used Tobacco Smoked in Last 30 Days: No Use of substances other than those prescribed or required for medical reasons: No Advance Directives: No Advance Directives Information Provided: Yes Patient : No Current occupational status: unemployed Gender identity: Female Physical Exam ED Vital Signs: Vital Signs - 24 hr 09/26/23 01:45 09/26/23 06:25 Temperature 98.2 F Pulse Rate 81 70 Respiratory Rate 18 18 Blood Pressure 150/86 H 126/79 Pulse Oximetry 100 100 Oxygen Delivery Method Room Air BMI result Body Mass Index 23.6 Const General: cooperative, no acute distress, alert and awake Nutritional Appearance: well nourished Orientation/consciousness: patient oriented x3 Limitations: no limitations HENMT Head: Yes normal to inspection and Yes atraumatic Ears: hearing grossly normal bilaterally, external ears normal and TM's normal bilaterally General nose exam: Normal external nose present, no nasal discharge noted and no epistaxis Face and sinus: Yes normal facial exam, No abrasion and No laceration Mouth: Normal oral and palatal mucosa present, no drooling and no muffled voice Eyes General: appearance normal, both eyes and all related structures Periorbital: periorbital findings normal Eyelids: Yes eyelids normal Conjunctivae: conjunctivae normal Pupils: Equal, round and reactive pupils present EOM: EOMs intact bilaterally Neck Neck: Yes normal visual inspection, Yes full ROM and Yes no lymphadenopathy Chest Chest palpation & inspection: normal inspection of the chest Resp Effort & Inspection: normal respiratory effort and able to speak in complete sentences GI Inspection: Yes normal to inspection Neuro General: patient oriented x3 and moves all extremities Cranial nerves: Yes Equal, round and reactive pupils present Cognition (Neuro): normal cognition Motor exam (neuro): 5/5 motor strength present throughout Sensory Exam: Normal double simultaneous stimulation for sensation Coordination: [id number] test normal Extrem General: Yes normal to inspection, Yes full ROM and Yes capillary refill normal Psych Appearance: grossly normal Mental Status: mental status grossly normal Affect: normal affect Attitude: cooperative Thought process: Normal thought process present Thought content: Normal thought content present Insight: Good insight present (Psych) Medications Administered Discontinued Medications Generic Name Dose Route Start Last Admin Trade Name Freq PRN Reason Stop Dose Admin Methylprednisolone Sodium Succinate 60 mg 09/26/23 06:45 09/26/23 07:24 Methylprednisolone Sod Succ 125 Mg/2 Ml Vial IM 09/26/23 06:46 60 mg ONCE ONE Administration Medical Decision Making Medical Decision Making MDM Narrative: Patient is a 32 year old assigned female at with a history of anemia and gastric bypass presenting to the emergency department today with right sided facial tingling and right ear pain / brief hearing loss. Patient's physical exam was unremarkable. Patient's blood work showed anemia which the patient confirmed is chronic for her. I explained my physical exam findings as well as all test results to the patient. I answered all questions asked by the patient. I stressed the importance of the patient taking her medication as prescribed. I stressed the importance of the patient following up with her primary care provider. I stressed the importance of the patient returning to the emergency department immediately if her symptoms were to worsen or if she were to develop any dizziness, shortness of breath, difficulty breathing, chest pain, blurry vision, loss of vision, nausea, vomiting, abdominal pain, fever, chills, back pain, or any other complaints. Patient verbalized agreement and understanding with this treatment plan and discharge. Differential Diagnosis Differential Diagnoses: The differential diagnosis associated with the presentation includes Trigeminal neuralgia Paresthesias Admission/Observation Consideration of admission/observation: Escalation of care including admission/observation considered Patient would have been admitted to the hospital had her work up had any findings where hospital admission was appropriate and her clinical presentation warranted hospital admission. Lab Data MDM Lab Attestation statement: I reviewed the patient's lab results. My interpretation of these results are in the [facility] Rationale portion of this note. 09/26/23 03:13 09/26/23 02:09 Labs: Lab Results 09/26/23 09/26/23 Range/Units 02:09 03:13 WBC 5.5 5.1 (4.8-10.8) X10*3/uL RBC 3.93 L 3.97 L (4.20-5.50) X10*6/uL Hgb 8.3 L D 8.5 L (12.0-16.0) g/dl Hct 28.0 L D 28.4 L (37.0-47.0) % MCV 71.2 L 71.5 L (80.0-98.0) fL MCH 21.1 L 21.4 L (27.0-33.0) pg MCHC 29.6 L 29.9 L (31.0-35.0) g/dl RDW 17.2 H 17.2 H (11.0-16.0) % Plt Count 336 316 (160-400) X10*3/uL MPV 9.7 9.8 (9.4-12.3) fL Immature Gran % (Auto) 0.2 0.4 (0.0-0.4) % Neut % (Auto) 41.9 L 42.7 L (45-73) % Lymph % (Auto) 47.8 H 47.4 H (20-40) % Sharkey % (Auto) 7.8 7.1 (2-11) % Eos % (Auto) 1.4 1.6 (0-4) % Baso % (Auto) 0.9 0.8 (0-2) % Lymph # (Auto) 2.7 2.4 (1.2-4.9) X10*3/uL Sharkey # (Auto) 0.4 0.4 (0.1-1.2) X10*3/uL Eos # (Auto) 0.1 0.1 (0.0-0.4) X10*3/uL Baso # (Auto) 0.1 0.0 (0.0-0.2) X10*3/uL Abs Immat Gran (auto) 0.01 0.02 (0.00-0.03) X10*3/uL Absolute Neuts (auto) 2.3 2.2 (2.0-8.3) x10*3/uL Absolute Nucleated RBC 0.000 0.000 (0.0-0.012) X10*3/uL Nucleated RBC % (auto) 0.0 0.0 (0.0-0.2) /100WBC Sodium 141 (135-145) mmol/L Potassium 4.1 (3.3-5.1) mmol/L Chloride 110 H (96-108) mmol/L Carbon Dioxide 23 (22-29) mmol/L Anion Gap 12 (12-20) BUN 13 (9-16) mg/dL Creatinine 0.72 (0.5-1.4) mg/dL Estim Creat Clear Calc 119.3 Estimated GFR > 60 Random Glucose 91 (60-115) mg/dL Calcium 9.5 (8.4-10.2) mg/dL Total Bilirubin 0.7 (0.0-1.0) mg/dL AST 12 (5-31) U/L ALT 6 (0-31) U/L Alkaline Phosphatase 57 (39-117) U/L Total Protein 7.2 (6.5-8.0) g/dL Albumin 4.3 (3.5-5.0) g/dL Prescription Management I considered prescription management with: Other (patient prescribed prednisone) Discharge Plan Discharge Clinical Impression: Trigeminal nerve spasm Patient Disposition: Home, Self-Care Instructions: Trigeminal Neuralgia (ED), Paresthesia (ED) Additional Instructions: Follow up with your primary care provider. Return to the emergency department immediately if your symptoms worsen or if you develop any dizziness, shortness of breath, difficulty breathing, chest pain, blurry vision, loss of vision, nausea, vomiting, abdominal pain, fever, chills, back pain, or any other complaints. Prescriptions: New prednisone 20 mg tablet 20 mg PO DAILY 7 Days Qty: 7 0RF No Action albuterol sulfate 90 mcg/actuation HFA aerosol inhaler 2 puff inhalation Q6H PRN (Reason: Wheezing) pantoprazole 40 mg tablet,delayed release (DR/EC) 40 mg PO DAILY Qty: 30 2RF sucralfate 100 mg/mL suspension 10 ml PO BID Qty: 400 2RF Ref[place]: [facility] [place] [facility] [place]] (Call to establish and follow up with a primary care provider. If you already have a primary care provider, please follow up with them.) [facility] [place] [facility]] (Call to establish and follow up with a primary care provider. If you already have a primary care provider, please follow up with them.) [facility] [place] [facility] Group] (Call to establish and follow up with a primary care provider. If you already have a primary care provider, please follow up with them.) Stand Alone Forms: Work/School Release Interventions: ED Discharge Assessment Last Done: 09/26/23 07:26 Discharge Date/Time: 09/26/23 07:27 Print Language: Maltese
== END 2023-09-26 07:27 | disposition home or self-care (01) ==
PROVIDERS: Emergency Provider Internal Medicine
DX: G50.0 Trigeminal neuralgia (principal); I10 Essential (primary) hypertension; Z90.3 Acquired absence of stomach [part of]; Z79.899 Other long term (current) drug therapy
CPT/HCPCS: 36415; 80053; 85025; 96372; 99284; J2930

== ENCOUNTER 2023-12-03 12:10 | Emergency (ER) | payer OTHER, SELFPAY ==
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
--- NOTE | ~2023-12-03 | XR_ITS ---
EXAMINATION: XR HIP, RIGHT CLINICAL INFORMATION: Right hip pain COMPARISON: None available. TECHNIQUE: Two views of the right hip. FINDINGS: No fracture. Alignment is anatomic. Hip joint space is maintained. Soft tissues are unremarkable. XR/XR hip RT w PEL1V IMPRESSION: Normal right hip.
--- NOTE | ~2023-12-03 | XR_ITS ---
EXAMINATION: XR LUMBOSACRAL SPINE CLINICAL INFORMATION: Low back pain COMPARISON: None available. TECHNIQUE: Three views of the lumbosacral spine. FINDINGS: Mild lumbar lordotic straightening. The vertebral bodies and posterior elements are normal. The disc spaces are preserved and the vertebral alignment is normal. The paraspinal soft tissues are normal. Pedicles and SI joints within normal limits. No hip joint narrowings. XR/XR lumbar spine 2-3V IMPRESSION: Mild lumbar lordotic straightening otherwise unremarkable study.
[2023-12-03 12:20] VITALS: BP 136/85; PULSE 100; O2SAT 100
[2023-12-03 13:24] VITALS: BP 142/79; PULSE 80; RESP 16; TEMP 37.1; O2SAT 100; BMI 26.6
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
[2023-12-03 18:44] VITALS: BP 125/73; PULSE 73; RESP 16; TEMP 36.7; O2SAT 100
== END 2023-12-03 18:52 | disposition home or self-care (01) ==
PROVIDERS: Emergency Provider Emergency Medicine
DX: S06.0X0A Concussion without loss of consciousness, initial encounter (principal); S13.4XXA Sprain of ligaments of cervical spine, initial encounter; M25.551 Pain in right hip; M54.2 Cervicalgia; R51.9 Headache, unspecified; M25.511 Pain in right shoulder; V43.63XA Car passenger injured in collision with pick-up truck in traffic accident, initial encounter; Y93.9 Activity, unspecified; Y92.410 Unspecified street and highway as the place of occurrence of the external cause; Y99.8 Other external cause status
CPT/HCPCS: 70450; 72100; 72125; 73030; 73502; 99284

== ENCOUNTER 2024-02-05 11:17 | Outpatient (REF) | payer OTHER, SELFPAY ==
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
== END 2024-02-05 11:18 | disposition home or self-care (01) ==
LOC: HO.XRAY 11:17
PROVIDERS: Visit Provider Chiropractor
DX: M25.522 Pain in left elbow (principal); Z87.828 Personal history of other (healed) physical injury and trauma
CPT/HCPCS: 73080

== ENCOUNTER 2024-11-11 17:06 | Outpatient (AMB) | payer OTHER, SELFPAY ==
--- OUTSIDE RECORDS SUMMARY | 2024-11-11 17:07 | XMS_ITS | Clinical Summary ---
Author Organization [facility] Address [address] [place] [address] Phone Care Team Providers Care Intermediate School Teacher Name Role Phone Unavailable Primary Care Provider Unavailabl e Immunizations Immunization Administration Dates Next Due DTaP 5 05/28/1997, 4,08/25/1993,05/24,02/21/1993 H1N1 08/12/2009 HPV, Quadrivalent 03/07/2009,11/05/2008,08/30/20 08 Hep B, ped/adol 08/25/1993,05/24/1993,02/21/1993 Hib (PRP-T) 05/07/1994, 3,05/24/1993,02/21 IPV 05/28/1997, 4,05/24/1993,02/21 Influenza Split 08/28/2011,06/01/2010 Influenza, injectable, trivalent 06/16/2009,12/04/2008 Influenza, intranasal, quadrivalent 07/24/2013 MMR 05/28/1997,05/07/1994 Meningococcal Conj (Menactra) MCV4P 06/24/2007 Td (adult) (MBL), 2 Lf tetan us toxoid, PF, adsorbed 02/10/2004 Tdap 06/24/2007 Family History Relation Name Status Comments Brother Brother: Asthma Father Father: Asthma Half-Brother 1 half brother: Asthma, Autism, Asthma, Asthma Half-Brother 2 half brother: Asthma, Autism, Asthma, Asthma Half-Sister Alive half sister: Al miroslava and well Mother Mother: Asthma Other Family history of Migraines, Family history of Obesity, Family history of Elevated cholesterol, Family history of Diabetes mellitus, No family history of Sudden /OH under age 55 Social History Tobacco Use Types Packs/Day Years Used Date Smoking Tobacco: Never Comments:Never smoker Comments Unknown Sex and Gender Information Value Date Recorded Sex Assigned at Not on file Legal Sex Female 4:51 PM EDT Gender Identity Not on file Sexual Orientation Not on file Last Filed Vital Signs Vital Sign Reading Time Taken Comments Blood Pressure 112/60 07/24/2013 12:00 AM EDT Pulse 58 06/30/2013 12:00 AM EDT Temperature 36.5 ??C (97.7 ??F) 06/30/2013 12:00 AM E DT Respiratory Rate - - Oxygen Saturation - - Inhaled Oxygen Concentration - - Weight 54.4 kg (120 lb) 07/24/2013 12:00 AM EDT Height 171.7 cm (5' 7.6 ) 06/30/2013 12:00 AM ED T Body Mass Index 18.46 06/30/2013 12:00 AM EDT Plan of Treatment Health Maintenance Due Date Last Done Comments Consider Men B Vaccine (1 of 2 - Bexsero 2-dose series) 2008 Varicella Vaccines (1 of 2 - 13+ 2-dose series) 08/21/2013 DTaP,Tdap,and Td Vaccines (7 - Td or Tdap) 06/24/2017 06/24/2007, 02/10/2004, 05/28/1997, Additional history exists Influenza Vaccines (#1) 2024 07/24/20 13, 08/28/2011, 06/01/2010, Additional history exists COVID-19 Vaccine ( season) 2024 Hepatitis B Vaccines Completed 08/25/1993, 05/24/1993, 02/21/1993 HIB Vaccines Completed 05/07/1994, 11/1992, 05/24/1993, Additional history exists IPV Vaccines Completed 05/28/1997, 08/23, 05/24/1993, Additional history exists MMR Vaccines Completed 05/28/1997, 05/07/1994 Meningococcal Vaccine Aged Out 06/24/2007 No reshma monico eligible based on patient's age to complete this topic HPV Vaccines Completed 03/07/2009, 10/24, 08/30/2008 Hepatitis A Vaccines Aged Out No long er eligible based on patient's age to complete this topic Men B Vaccine Aged Out No longer elig ible based on patient's age to complete this topic Pneumococcal Vaccine Aged Out No long er eligible based on patient's age to complete this topic Procedures * Due to [place] [employer] law, this organization might not be sharing sensitive test results. Procedure Name Priority Date/Time Associated Diagnosis Comments CHLAMYDIA AND GONORRHEA, AMPLIFIED Routine 08/29/2011 2:24 PM EST from Last 3 Months or Most Recently Relevant to Health Maintenance Results * Due to [place] [employer] law, this organization might not be sharing sensitive test results. * Chlamydia and Gonorrhoea, Amplified (08/29/2011 2:24 PM EST) URINE CHLAMYDIA AMP PROBE NEGATIVE [facility] Comment: NO CHLAMYDIA TRACHOMATIS RNA DETECTED IN THIS PATIENT'S SAMPLE. ? (REFERENCE RANGE/NORMAL VALUE: NOT DETECTED) URINE GC AMP PROBE NEGATIVE [facility] Comment: NO NEISSERIA GONORRHOEAE RNA DETECTED IN THIS PATIENT'S SAMPLE. ? (REFERENCE RANGE/NORMAL VALUE: NOT DETECTED) ? NOTE: THIS TEST USES SUPPORT SERVICES COORDINATOR MEDIATED AMPLIFICATION METHOD TO DETECT rRNA FROM C.TRACHOMATIS AND N.GONORRHOEAE. A NEGATIVE RESULT DOES NOT PRECLUDE INFECTION WITH C.TRACHOMATIS OR N.GONORRHOEAE BECAUSE RESULTS ARE DEPENDENT ON ADEQUATE SPECIMEN COLLECTION, ABSENCE OF INHIBITORS, AND SUFFICIENT rRNA TO BE DETECTED. THE APTIMA COMBO2 ASSAY IS NOT INTENDED FOR THE EVALUATION OF SUSPECTED SEXUAL ABUSE OR FOR OTHER MEDICO LEGAL INDICATIONS. IS TRUE FOR ALL NON CULTURE METHODS, A POSITIVE SPECIMEN OBTAINED FROM A PATIENT AFTER THERAPEUTIC TREATMENT CANNOT BE INTERPRETED INDICATING THE PRESENCE OF VIABLE C.TRACHOMATIS OR N.GONORRHOEAE. THERAPEUTIC FAILURE OR SUCCESS CANNOT BE DETERMINED WITH THE APTIMA COMBO2 ASSAY SINCE NUCLEIC ACID MAY PERSIST FOLLOWING APPROPRIATE ANTIMICROBIAL THERAPY. A NEGATIVE URINE RESULT FOR A PATIENT WHO IS CLINICALLY SUSPECTED OF HAVING A CHLAMYDIAL OR GONOCOCCAL INFECTION DOES NOT RULE OUT THE PRESENCE OF C.TRACHOMATIS OR N.GONORRHOEAE IN THE UROGENITAL TRACT. TESTING OF AN ENDOCERVICAL(FEMALE) OR URETHRAL(MALE) SPECIMEN IS RECOMMENDED IF THERE IS HIGH CLINICAL SUSPICION OF INFECTION. PRESERVCYT LIQUID PAP AND URINE SAMPLING ARE NOT DESIGNED TO REPLACE CERVICAL EXAMS AND ENDOCERVICAL SAMPLES FOR DIAGNOSIS OF FEMALE UROGENITAL INFECTIONS. PATIENTS MAY HAVE CERVICITIS, URETHRITIS, URINARY TRACT INFECTIONS, OR VAGINAL INFECTIONS DUE TO OTHER CAUSES OR CONCURRENT INFECTIONS WITH OTHER AGENTS. 08/29/2011 2:24 PM EST Narrative [facility] - 08/29/2011 2:24 PM EST URINE CHLAMYDIA GC AMP PROBE us Carolina Dhaliwal MD LAB MICROBIOLOGY - GENERAL ORD ERABLES Final Result [facility] [address] [place] [address], [place] from Last 3 Months or Most Recently Relevant to Health Maintenance
--- OUTSIDE RECORDS SUMMARY | 2024-11-11 17:07 | XMS_ITS | Encounter Summary ---
Author Organization [facility] Address [address] [place] [address] Phone Care Team Providers Care Ultrasonographer Name Role Phone Carolina Dhaliwal MD Primary Care Provider [phone] Encounter Details Date Type Department Care Team (Late st Contact Info) Description 05/09/2017 Conversion Encounter [facility] [place] [address] [place] [address] Social History Tobacco Use Types Packs/Day Years Used Date Smoking Tobacco: Never Comments:Never smoker Comments Unknown Sex and Gender Information Value Date Recorded Sex Assigned at Not on file Legal Sex Female 4:51 PM EDT Gender Identity Not on file Sexual Orientation Not on file documented as of this encounter Plan of Treatment Not on file documented as of this encounter Visit Diagnoses Not on filedocumented in this encounter Care Teams Ultrasonographer Relationship Specialty Start Date End Date Carolina Dhaliwal MD [address] [place] [address] PCP - General 05/03/17 12/05/22 documented as of this encounter
--- OUTSIDE RECORDS SUMMARY | 2024-11-11 17:07 | XMS_ITS | Encounter Summary ---
Author Organization [facility] Address [address] [place] [address] Phone Care Team Providers Care Magnetic Prospecting Supervisor Name Role Phone Carolina Dhaliwal MD Primary Care Provider [phone] Encounter Details Date Type Department Care Team (Late st Contact Info) Description 06/29/2011 Documentation [facility] [place] [address] [place], [place] [id number] Family Medicine, Physician [address] [place], [place] [address] Social History Tobacco Use Types Packs/Day Years Used Date Smoking Tobacco: Never Assessed Comments Unknown Sex and Gender Information Value Date Recorded Sex Assigned at Not on file Legal Sex Female 4:51 PM EDT Gender Identity Not on file Sexual Orientation Not on file documented as of this encounter Plan of Treatment Not on file documented as of this encounter Visit Diagnoses Not on filedocumented in this encounter Care Teams Magnetic Prospecting Supervisor Relationship Specialty Start Date End Date Carolina Dhaliwal MD [address] [facility] [place] [address] PCP - General 05/03/17 12/05/22 documented as of this encounter
--- NOTE | 2024-11-11 17:11 | A.OFFPC_ITS ---
Vital Signs 11/11/24 17:15 Height 5 ft 9 in Weight 223 lb BMI 32.9 BP 118/82 Blood Pressure Location Lt brachial Position Sitting Intake Visit Reasons: Physical Intake Note: Patient here for a physical exam Floating Operator Required: No Accompanied by: Self / Same As Patient Allergies sulfamethoxazole [From Bactrim] Allergy (Verified 11/11/24 17:26) Fever trimethoprim [From Bactrim] Allergy (Verified 11/11/24 17:26) Fever Medication List - Last Reviewed 11/11/24 by CORTNEY Velazquez Tobacco use date assessed: 11/11/24 Dental Screening Dental Screen Date: 11/11/24 Did you have a dental visit in the last 12 months?: Yes Did you have a dental problem in the last 6 months where you did not have access to dental care?: No Was dental information given to patient?: Patient has dentist HPI HPI Comments History of Present Illness Details The patient is a 33-year-old female presenting for physical exam with persistent depression and anxiety. The patient's depression has been ongoing, characterized by severe symptoms as indicated by a PHQ-9 score of 24. Anxiety was also reported. She has seen a counselor and is on a waitlist for psychiatric services. Previously, she took Zoloft but experienced side effects including nausea. Currently, she has not tried Wellbutrin. The patient reports pain associated with previously identified fatty liver disease, with discomfort localized in the back, specifically on the left side. The pain persists randomly without any specific relieving or aggravating factors mentioned. The patient has a significant surgical history including a gastric sleeve procedure in 2021 and a dermoid cyst excision of the scalp. Additionally, a previous procedure involving axillary surgery is noted, attributed to a possible rupture in that region. - Pap smear completed in 2020, negative results - Plans for additional blood work for co mprehensive health screening including glucose, liver, and kidney panels - Recommendation for flu vaccination [facility] Medical History DJD (degenerative joint disease) BMI 33.0-33.9,adult COVID-19 vaccine series completed Family history of DVT BMI 34.0-34.9,adult BMI 36.0-36.9,adult Vitamin A deficiency Vitamin B1 deficiency BMI 38.0-38.9,adult Vitamin D deficiency Hypersomnolence Anxiety Asthma Steatosis, liver BMI 37.0-37.9, adult Obesity Keratoconjunctivitis control counseling Potential exposure to STD Vaginal discharge Irregular menses Pelvic pain Sjogren's syndrome Elevated aldolase level Dysphagia GERD (gastroesophageal reflux disease) Myositis Abnormal LFTs Menorrhagia Depression Surgical History S/P laparoscopic sleeve gastrectomy Hx of excision of dermoid cyst Hx of biopsy Hx of tubal ligation Hx of wisdom tooth extraction Hx of endoscopy History of axillary surgery Family History Mother Clotting disorder History of high blood pressure Father No problems noted. Brother No problems noted. Brother No problems noted. Brother No problems noted. Sister No problems noted. Son No problems noted. Son No problems noted. Daughter No problems noted. Daughter No problems noted. Other Mental health disorder Substance use disorder Social History Household Members: Family Housing: Condominium Are you a primary medicare sales executive to a significant other at home: Yes (sister will be staying w/patient for one week post surgery) Do you presently have visiting nurse or other home services: No Alcohol intake: never Patient Tobacco Use Status: Never used Tobacco e-Cigarette/Vaping Use: Never Used Second Hand Smoke Exposure: No service: No Current occupational status: unemployed Gender identity: Female Cognitive needs: No Hearing needs: No Vision needs: No Female Reproductive History Menstrual Age of Menarche: 16 Questionnaire PHQ-9 Over the last 2 weeks, how often have you been bothered by any of the following problems? 1. Little interest or pleasure in doing things: nearly every day 2. Feeling down, depressed, or hopeless: nearly every day 3. Trouble falling or staying asleep, or sleeping too much: nearly every day 4. Feeling tired or having little energy: nearly every day 5. Poor appetite or overeating: nearly every day 6. Feeling bad about yourself - or that you are a failure or have let yourself or your family down: nearly every day 7. Trouble concentrating on things, such as reading the newspaper or watching television: nearly every day 8. Moving or speaking so slowly that other people could have noticed. Or the opposite - being so fidgety or restless that you have been moving around a lot more than usual: nearly every day 9. Thoughts that you would be better off or of hurting yourself in some way: not at all Total score: 24 Depression Screening Interpretation: Positive (no suicidal thoughts) Depression Screening Follow-up: Existing condition, Community Mental Health Worker F/U and Follow-up Visit Requested Depression Screening Done: Yes 78346 - PHQ-9 Billing: Yes Source: Developed by Drs. Bigg Hanley, Grazyna Avila, Gurwinder Scherer and colleagues, with an educational mayela from [email or web address]. Thrive Questionnaire Date Thrive assessed: 11/11/24 I am a: Patient What is your living situation today?: I have a steady place to live Within the past 12 months, did the food you bought not last and you didn't have the money to get more?: Never true Within the past 12 months, did you worry whether your food would run out before you got money to buy more?: Never true Do you have trouble paying for medicines?: No Do you have trouble getting transportation to medical appointments?: No Do you have trouble paying your heating and electricity bill?: No Do you have trouble taking care of your child, family member or friend?: No Do you have trouble with day-to-day activities such as bathing, preparing meals, shopping, managing finances, etc.?: I choose not to answer this question Are you currently unemployed and looking for a job?: Yes Are you interested in more education?: Yes Please select the resources that you would like help with: Job search/training and Education Currently or been in a relationship where the following occur: Controlled Financially THRIVE Score: 1 AUDIT C Alcohol Use Questionnaire (AUDIT-C) 1. How often do you have a drink containing alcohol?: Never 3. How often do you have six or more drinks on one occasion?: Never Total Score: 0 Score Reviewed/Action Taken: No DEMARCO-7 AMB Questionnaire DEMARCO-7 Date DEMARCO - 7 assessed: 11/11/24 Feeling nervous, anxious, or on edge: 3 = Nearly every day Not being able to stop or control worryin = Nearly every day Worrying too much about different things: 3 = Nearly every day Trouble relaxin = Nearly every day Being so restless that it is hard to sit still: 1 = Several days Becoming easily annoyed or irritable: 2 = More than half the days Feeling afraid as if something awful might happen: 3 = Nearly every day Total DEMARCO-7 score (0-4 normal; 5-9 mild; 10-14 moderate; 15-21 severe): 18 Source: Developed by Drs. Bigg Hanley, Grazyna Avila, Gurwinder Scherer and colleagues, with an educational mayela from [employer]. DEMARCO-7 Assessment Billing DEMARCO-7 Assessment Tool: DEMARCO-7 Assessment 37599 Review of Systems Const All systems reviewed & are unremarkable except as noted in HPI and below Card Denies chest pain at rest, Denies chest pain with activity, Denies edema, Denies irregular heart rhythm, Denies claudication, Denies dyspnea, Denies dyspnea on exertion, Denies orthopnea, Denies paroxysmal nocturnal dyspnea and Denies slow heart rate Resp Denies cough, Denies dyspnea and Denies dyspnea on exertion GI Denies abdominal pain, Denies change in bowel habits, Denies excessive flatus, Denies nausea and Denies vomiting Denies urinary incontinence, Denies urinary hesitancy and Denies urinary urgency Musc Denies abnormal gait, Denies atrophy, Denies deformity and Denies limited range of motion Skin/Breast Denies bleeding lesions, Denies changing lesions and Denies rash Neuro Denies abnormal gait and Denies lack of coordination Physical exam (Primary Care) Vital Signs: Last Vital Signs BP 118/82 11/11/24 17:15 BMI result Body Mass Index 32.9 Tobacco/Smoking Status: Tobacco use Status Tobacco use date assessed 11/11/24 11/11/24 17:17 Patient Tobacco Use Status Never used Tobacco 11/11/24 17:17 e-Cigarette/Vaping Use Never Used 11/11/24 17:17 PHQ-9: PHQ-9 Score PHQ-9: Total score 24 11/11/24 17:41 Depression Screening Interpretation: Positive (no suicidal thoughts) Depression Screening Follow-up: Existing condition, Community Mental Health Worker F/U and Follow-up Visit Requested Thrive Assessment: Date of Thrive Assessment Date Thrive assessed 11/11/24 11/11/24 17:17 Currently or been in a relationship where the following occur: Controlled Financially HENAZ Head: Yes normal to inspection, Yes normocephalic and Yes atraumatic Ears: external ears normal Eyes General: appearance normal, both eyes and all related structures Eyelids: Yes eyelids normal Conjunctivae: conjunctivae normal Neck Neck: Yes normal visual inspection and Yes supple Resp Effort & Inspection: normal respiratory effort Auscultation: clear to auscultation bilaterally Cardio Jugular venous distension: no JVD Rate: regular rate Rhythm: regular rhythm Heart sounds: S1 normal heart sound present and S2 normal heart sound present GI Inspection: Yes normal to inspection Palpation (GI): Soft to palpation and nontender Auscultation: normal bowel sounds Skin General skin exam: no rashes or lesions noted Neuro General: no focal motor deficits Extrem General: Yes full ROM Psych Appearance: grossly normal Office Procedures Flu Questionnaire Does the patient have a severe egg allergy?: No Does the patient have severe life threatening allergies?: No Does the patient have a fever or illness today?: No Has the patient ever had Guillain-[place] Syndrome?: No Has the patient ever had any past reaction to a flu shot?: No Immunizations Fluarix Triv [id number] (PF) 45 mcg (15 mcg x 3)/0.5 mL IM syringe Performing Provider: Mera Santizo MD [facility]forming [facility] [place] [facility] Administered by: CORTNEY Velazquez on 11/11/24 17:41 Dose Route Admin Location Dispensed Lot Number Expiration Date NDC Log Sorting Supervisor 0.5 mL IM Left Deltoid 0.5 mL [id number] 03/22/25 65201-001-03 [facility] Given Date VIS Provided VIS Publication Date 11/11/24 Single Vaccine 21 Eligibility Eligibility Date Funding Source Not [facility] Eligible 11/11/24 Private Coding Level of Care Code Est Pt Level 3 (27517) Est Pt Prev Care 18-39y(12553) Diagnoses Physical exam Z00.00 Severe major depression without psychotic features F32.2 Back pain M54.9 Additional Codes DEMARCO-7 Assessment Billing - DEMARCO-7 Assessment Tool: DEMARCO-7 Assessment 62874 ([id number]) PHQ-9 - 98964 - PHQ-9 Billing: Yes ([id number]) Time Spent (min) 32 Assessment & Plan Assessment & Plan (1) Physical exam: Code(s): Z00.00 - Encounter for general adult medical examination without abnormal findings Category: Medical (2) Severe major depression without psychotic features: Code(s): F32.2 - Major depressive disorder, single episode, severe without psychotic features Category: Medical (3) Back pain: Code(s): M54.9 - Dorsalgia, unspecified Category: Medical Plan - Start Wellbutrin for depression and anxiety management, as the patient is eager to try an alternative due to inefficacy and side effects from Zoloft. - Recommend blood work to assess general health parameters, including blood sugar, kidney, and liver function as part of routine health maintenance. - Provide OBGYN referral due to the history of Pap smear. - Prescribe pain management medication to address persistent musculoskeletal pain believed to be muscle-related. Patient was informed and verbally consented to the use of an ambient scribe for clinic note documentation during this visit. Orders: Orders Influenza [id number] Immunization Today Z23 - Encounter for immunization Comprehensive [place]. Panel Fast Today Z00.00 - Encounter for general adult medical examination without abnormal findings Lipid Panel Today Z00.00 - Encounter for general adult medical examination without abnormal findings Referrals Psychiatry Outpatient Consultation Service F32.2 - Major depressive disorder, single episode, severe without psychotic features Medications: New bupropion HCl XL 150 mg PO QAM 90 tabs 3RF 90 days F32.2 - Major depressive disorder, single episode, severe without psychotic features Patient Instructions: - Start Wellbutrin daily as prescribed and monitor for any side effects or improvement in mood over the next few weeks. - Continue weekly counseling sessions. - Follow up with the OBGYN referral for examination. - Have blood work done at your earliest convenience. - Take the prescribed pain medication as needed for back pain. - Maintain a low-fat diet to manage fatty liver-related symptoms. - Return for any new or worsening symptoms or concerns.
[2024-11-11 17:15] VITALS: BP 118/82; BMI 32.9
== END 2024-11-11 17:35 | disposition home or self-care (01) ==
PROVIDERS: Visit Provider Internal Medicine
DX: Z00.00 Encounter for general adult medical examination without abnormal findings (principal); F32.2 Major depressive disorder, single episode, severe without psychotic features; M54.9 Dorsalgia, unspecified; Z23 Encounter for immunization

== ENCOUNTER → 2024-11-11 17:06 | Outpatient (BNVA) | payer OTHER, SELFPAY | PROVIDERS: Visit Provider Internal Medicine | DX: Z00.00 Encounter for general adult medical examination without abnormal findings (principal); Z23 Encounter for immunization; F32.2 Major depressive disorder, single episode, severe without psychotic features; F41.9 Anxiety disorder, unspecified; M54.9 Dorsalgia, unspecified; Z98.84 Bariatric surgery status | CPT/HCPCS: 90471; 90656; 96127 ==

== ENCOUNTER 2025-06-08 02:40 | Emergency (ER) | payer OTHER, SELFPAY ==
--- NOTE | 2025-06-08 | ECG_ITS ---
Test Reason : CHEST PAIN Blood Pressure : */* mmHG Vent. Rate : 75 BPM Atrial Rate : 75 BPM P-R Int : 156 ms QRS Dur : 82 ms QT Int : 390 ms P-R-T Axes : 51 59 51 degrees QTcB Int : 435 ms Normal sinus rhythm with sinus arrhythmia Normal ECG When compared with ECG of 06-Sep-2021 08:23, No significant change was found Referred By: Generic ED Physician Electronically Signed By: MOLINA SHEPHERD
--- NOTE | ~2025-06-08 | XR_ITS ---
CLINICAL HISTORY: chest pain 1 view chest x-ray Comparison: None provided Findings: No consolidation or effusion. Heart size is normal. No acute fracture. IMPRESSION: No acute cardiopulmonary abnormality. This document has been electronically signed by: Toño Coleman on 06/08/2025 06:13:13
[2025-06-08 02:48] VITALS: BP 125/88; PULSE 78; RESP 20; TEMP 36.7; O2SAT 100; BMI 31.0
[2025-06-08 03:01] LABS: Hematocrit 27.6 % (37.0-47.0); Hemoglobin 8.3 g/dl (12.0-16.0); Imm Gran Abs Auto 0.01 X10*3/uL (0.00-0.03); Imm Gran Pct Auto 0.2 % (0.0-0.4); Lymphocytes Absolute Auto 2.7 X10*3/uL (1.2-4.9); MANUAL DIFF FLAG NO; Mean Corpuscular HGB Conc 30.1 g/dl (31.0-35.0); Mean Corpuscular Hemoglobin 20.6 pg (27.0-33.0); Mean Corpuscular Volume 68.7 fL (80.0-98.0); NRBC Abs Auto 0.000 X10*3/uL (0.0-0.012); NRBC Pct Auto 0.0 /100WBC (0.0-0.2); Platelet Count 336 X10*3/uL (160-400); Red Blood Count 4.02 X10*6/uL (4.20-5.50); White Blood Count 6.2 X10*3/uL (4.8-10.8)
[2025-06-08 03:18] LABS: Alanine Aminotransferase 18 U/L (0-31); Albumin Level 4.5 g/dL (3.5-5.0); Alkaline Phosphatase 67 U/L (39-117); Anion Gap 12 (12-20); Aspartate Amino Transferase 22 U/L (5-31); Blood Urea Nitrogen 11 mg/dL (9-16); Calcium 8.9 mg/dL (8.4-10.2); Carbon Dioxide 21 mmol/L (22-29); Chloride 112 mmol/L (96-108); Creatinine Clr Calc Pharmacy 150.3; Estimated Glomerular Filt Rate > 60; Potassium 3.9 mmol/L (3.3-5.1); Sodium 141 mmol/L (135-145); Total Protein 7.2 g/dL (6.5-8.0)
[2025-06-08 03:22] LABS: Troponin-I High Sensitivity < 2.7 ng/L (<3.5-17.0)
--- OUTSIDE RECORDS SUMMARY | 2025-06-08 04:35 | XMS_ITS | Encounter Summary ---
Author Organization [facility] Address [address] [place] [address] Phone Care Team Providers Care Methods Specialist Engineer Name Role Phone Carolina Dhaliwal MD Primary Care Provider [phone] Encounter Details Date Type Department Care Team (Late st Contact Info) Description 06/29/2011 Documentation [facility] [place] Family Medicine [address] [place], [place] [phone] Family Medicine, Physician [address] [place], [place] [address] Social History Tobacco Use Types Packs/Day Years [...] on filedocumented in this encounter Care Teams Methods Specialist Engineer Relationship Specialty Start Date End Date Carolina Dhaliwal MD [address] [facility] [place] [id number] PCP - General 05/03/17 12/05/22 documented as of this encounter
--- OUTSIDE RECORDS SUMMARY | 2025-06-08 04:35 | XMS_ITS | Encounter Summary ---
Author Organization [facility] Address [address] [place] [address] Phone Care Team Providers Care Reimbursement Coordinator Name Role Phone Carolina Dhaliwal MD Primary Care Provider [phone] Encounter Details Date Type Department Care Team (Late st Contact Info) Description 09/03/2011 Documentation [facility] [place] [address] [place] [address] Family Medicine, Physician [address] [place], [place] [id number] Social History Tobacco Use Types Packs/Day Years [...] on filedocumented in this encounter Care Teams Reimbursement Coordinator Relationship Specialty Start Date End Date Carolina Dhaliwal MD [address] [place] [address] PCP - General 05/03/17 12/05/22 documented as of this encounter
--- OUTSIDE RECORDS SUMMARY | 2025-06-08 04:35 | XMS_ITS | Encounter Summary ---
Author Organization [facility] Address [address] [place] [address] Phone Care Team Providers Care Peoplesoft Consultant Name Role Phone Carolina Dhaliwal MD Primary Care Provider [phone] Encounter Details Date Type Department Care Team (Late st Contact Info) Description 05/09/2017 Conversion Encounter [facility] [place] [address] [place] [address] Social History Tobacco Use Types Packs/Day Years [...] on filedocumented in this encounter Care Teams Peoplesoft Consultant Relationship Specialty Start Date End Date Carolina Dhaliwal MD [address] [place] [address] PCP - General 05/03/17 12/05/22 documented as of this encounter
--- OUTSIDE RECORDS SUMMARY | 2025-06-08 04:35 | XMS_ITS | Clinical Summary ---
Author Organization [facility] Address [address] [place] [address] Phone Care Team Providers Care Animation Artist Name Role Phone Unavailable Primary Care Provider [...] Diabetes mellitus, No family history of Sudden /SD under age 55 Social History Tobacco Use [...] 60 06/30/2013 12:00 AM EDT Temperature 36.5 C (97.7 F) 06/30/2013 12:00 AM EDT Respiratory Rate - - Oxygen Saturation - - Inhaled Oxygen Concentration - - Weight 54.4 kg (120 lb) 07/24/2013 12:00 AM EDT Height 171.7 cm (5' 7.6 ) 06/30/2013 12:00 AM ED T Body Mass Index 18.46 06/30/2013 12:00 AM EDT Plan of Treatment Health Maintenance Due Date Last Done Comments Varicella Vaccines (1 of 2 - 13+ 2-dose series) 08/21/2013 DTaP,Tdap,and Td Vaccines (7 - Td or Tdap) 06/24/2017 06/24/2007, 02/10/2004, 05/28/1997, Additional history exists Influenza Vaccines (#1) 2025 07/24/20 13, 08/28/2011, 06/01/2010, Additional history exists COVID-19 Vaccine ( season) 2025 Hepatitis B Vaccines Completed 08/25/1993, 05/24/1993, 02/21/1993 [...] complete this topic Procedures * Due to [facility] law, this organization might not be sharing sensitive test results. Procedure Name Priority Date/Time Associated Diagnosis Comments CHLAMYDIA AND GONORRHEA, AMPLIFIED Routine 08/29/2011 2:24 PM EST from Last 3 Months or Most Recently Relevant to Health Maintenance Results * Due to [facility] law, this organization might not be sharing sensitive test results. * Chlamydia and Gonorrhoea, Amplified (08/29/2011 2:24 PM EST) URINE CHLAMYDIA AMP PROBE NEGATIVE [facility] Comment: NO CHLAMYDIA TRACHOMATIS RNA DETECTED IN THIS PATIENT'S SAMPLE. (REFERENCE RANGE/NORMAL VALUE: NOT DETECTED) URINE GC AMP PROBE NEGATIVE [facility] Comment: NO NEISSERIA GONORRHOEAE RNA DETECTED IN THIS PATIENT'S SAMPLE. (REFERENCE RANGE/NORMAL VALUE: NOT DETECTED) NOTE: THIS TEST USES SWITCH INSPECTOR MEDIATED AMPLIFICATION METHOD TO DETECT rRNA FROM [...] OTHER AGENTS. 08/29/2011 2:24 PM EST Narrative [facility] - 08/29/2011 2:24 PM EST URINE CHLAMYDIA GC AMP PROBE us Carolina Dhaliwal MD LAB MICROBIOLOGY - GENERAL ORD ERABLES Final Result [facility] [address] [place] [address], [place] from Last 3 Months or Most Recently Relevant to Health Maintenance
--- NOTE | 2025-06-08 04:54 | ED_ITS ---
HPI - Chest Pain General Chief Complaint: Chest Pain Stated Complaint: CP + SOB Time Seen by Provider: 06/08/25 04:54 Source: patient Mode of arrival: ambulatory Limitations: no limitations History of Present Illness ED Provider: Dr. Rose Jara HPI narrative: 34-year-old female with a history of gastric sleeve, anxiety, depression, asthma, Sjogren's, iron-deficiency anemia presenting with chest pain radiating to her left shoulder ongoing since about 10:00 p.m. last night. Pain is worse with movement and palpation of her chest wall. Denies associated shortness of breath, fever, cough or cold-type symptoms, abdominal pain, nausea, vomiting, diarrhea, lower extremity edema or pain, urinary complaints, known sick contacts. Admits she thought that her anemia might be worse and that she might need a blood transfusion. Admits she has not been taking her iron supplementation lately. Related Data Previous Rx's ?Medication ?Instructions ?Recorded bupropion HCl 150 mg 24 hr tablet, 150 mg PO QAM 90 da ys #90 tabs 11/11/24 extended release naproxen 500 mg tablet 500 mg PO BID PRN pain 30 da ys #60 11/11/24 tabs dexamethasone 1.5 mg (21 tabs) 1.5 mg PO DAILY #21 ea 06/08/25 tablets in a dose pack (TaperDex) Allergies Allergy/AdvReac Type Severity Reaction Status Date / Time sulfamethoxazole (From Allergy Fever Verified 06/08/25 02:50 Bactrim) trimethoprim (From Bactrim) Allergy Fever Verified 06/08/25 02:50 Review of Systems 2 Review of Systems: As per HPI, full review of systems performed and negative but for the above mentioned pertinent positives and negatives. [facility] Past Medical History Medical History DJD (degenerative joint disease) BMI 33.0-33.9,adult COVID-19 vaccine series completed Family history of DVT BMI 34.0-34.9,adult BMI 36.0-36.9,adult Vitamin A deficiency Vitamin B1 deficiency BMI 38.0-38.9,adult Vitamin D deficiency Hypersomnolence Anxiety Asthma Steatosis, liver BMI 37.0-37.9, adult Obesity Keratoconjunctivitis control counseling Potential exposure to STD Vaginal discharge Irregular menses Pelvic pain Sjogren's syndrome Elevated aldolase level Dysphagia GERD (gastroesophageal reflux disease) Myositis Abnormal LFTs Menorrhagia Depression Surgical History S/P laparoscopic sleeve gastrectomy Hx of excision of dermoid cyst Hx of biopsy Hx of tubal ligation Hx of wisdom tooth extraction Hx of endoscopy History of axillary surgery Family History Family History Mother Clotting disorder History of high blood pressure Father No problems noted. Brother No problems noted. Brother No problems noted. Brother No problems noted. Sister No problems noted. Son No problems noted. Son No problems noted. Daughter No problems noted. Daughter No problems noted. Other Mental health disorder Substance use disorder Social History Social History Household Members: Family Housing: [facility] Are you a primary life care planner to a significant other at home: Yes (sister will be staying w/patient for one week post surgery) Do you presently have visiting nurse or other home services: No Alcohol intake: never Patient Tobacco Use Status: Never used Tobacco e-Cigarette/Vaping Use: Never Used Second Hand Smoke Exposure: No Advance Directives: No Advance Directives Information Provided: Yes Do you have a plan to hurt others: No Plan service: No Current occupational status: unemployed Gender identity: Female Cognitive needs: No Hearing needs: No Vision needs: No Physical Exam 2 Exam: Exam: GENERAL: Well-Appearing, conversant, no acute distress. SKIN: Normal skin color for ethnicity, warm, dry, no rashes noted. HEENT: Normocephalic, atraumatic, no stridor, posterior oropharynx nonerythematous, dentition intact, EOMI. NECK: Soft, supple, full ROM, midline structures nontender, no step-offs, no deformities, no lymphadenopathy. CHEST: Heart regular rate and rhythm, no murmurs, symmetric chest rise and fall, left anterior chest wall tenderness to palpation, no crepitus. PULMONARY: Clear to auscultation bilaterally, no labored breathing, no wheezes/rhales/rhonchi. ABDOMINAL: Soft, nondistended, nontender, positive bowel sounds in all quadrants. : Deferred. MUSCULOSKELETAL: Normal tone, full range of motion, no deformities, no peripheral edema. NEURO: Alert and oriented x3, CN II through XII intact, equal strength and sensation bilateral upper and lower extremities, no focal neurologic deficits. PSYCHIATRIC: Normal affect, fluid speech, good eye contact and appropriate demeanor. Vital Signs: Vital Signs: Last Vital Signs Temp 98.6 F 06/08/25 06:54 Pulse 64 06/08/25 06:54 Resp 18 06/08/25 06:54 BP 127/70 06/08/25 06:54 Pulse Ox 100 06/08/25 06:54 O2 Del Method Room Air 06/08/25 06:54 BMI result Body Mass Index 31.0 Medical Decision Making Medical Decision Making [facility] Narrative: Patient presents today with a chief complaint of chest pain. Differential diagnosis includes, but is not limited to, acute coronary syndrome, musculoskeletal pain, pneumothorax, GERD, pleurisy, pulmonary embolism, dissection, among others. I will order EKG, chest x-ray, the laboratory workup including cardiac enzymes to further evaluate for etiology. Heart score is 3, workup is reassuring. No significant anemia requiring blood transfusion today. Encouraged continued use of iron. Using shared decision making, plan for discharge home to follow-up with primary care and/or specialist. Patient understands and agrees with plan for discharge. Discharged home in stable condition. Differential Diagnosis Differential Diagnoses: The differential diagnosis associated with the presentation includes (As above) Admission/Observation Consideration of admission/observation: Escalation of care including admission/observation considered Lab Data [facility] Lab Attestation statement: I reviewed the patient's lab results. 06/08/25 02:50 06/08/25 02:50 Labs: Lab Results 06/08/25 Range/Units 02:50 WBC 6.2 (4.8-10.8) X10*3/uL RBC 4.02 L (4.20-5.50) X10*6/uL Hgb 8.3 L (12.0-16.0) g/dl Hct 27.6 L (37.0-47.0) % MCV 68.7 L (80.0-98.0) fL MCH 20.6 L (27.0-33.0) pg MCHC 30.1 L (31.0-35.0) g/dl RDW 17.7 H (11.0-16.0) % Plt Count 336 (160-400) X10*3/uL MPV 10.3 (9.4-12.3) fL Immature Gran % (Auto) 0.2 (0.0-0.4) % Neut % (Auto) 45.9 (45-73) % Lymph % (Auto) 43.3 H (20-40) % [place] % (Auto) 9.0 (2-11) % Eos % (Auto) 1.0 (0-4) % Baso % (Auto) 0.6 (0-2) % Lymph # (Auto) 2.7 (1.2-4.9) X10*3/uL [place] # (Auto) 0.6 (0.1-1.2) X10*3/uL Eos # (Auto) 0.1 (0.0-0.4) X10*3/uL Baso # (Auto) 0.0 (0.0-0.2) X10*3/uL Abs Immat Gran (auto) 0.01 (0.00-0.03) X10*3/uL Absolute Neuts (auto) 2.9 (2.0-8.3) x10*3/uL Absolute Nucleated RBC 0.000 (0.0-0.012) X10*3/uL Nucleated RBC % (auto) 0.0 (0.0-0.2) /100WBC Sodium 141 (135-145) mmol/L Potassium 3.9 (3.3-5.1) mmol/L Chloride 112 H (96-108) mmol/L Carbon Dioxide 21 L (22-29) mmol/L Anion Gap 12 (12-20) BUN 11 (9-16) mg/dL Creatinine 0.66 (0.5-1.4) mg/dL Estim Creat Clear Calc 150.3 Estimated GFR > 60 Random Glucose 91 (60-115) mg/dL Calcium 8.9 D (8.4-10.2) mg/dL Total Bilirubin 0.6 (0.0-1.0) mg/dL AST 22 (5-31) U/L ALT 18 (0-31) U/L Alkaline Phosphatase 67 (39-117) U/L Troponin I High Sens < 2.7 (<3.5-17.0) ng/L Total Protein 7.2 (6.5-8.0) g/dL Albumin 4.5 (3.5-5.0) g/dL Independent Interpretation I performed an independent interpretation of an: EKG and Plain X-Ray Interpretation: My independent interpretation of the chest x-ray reveals no consolidations, pulmonary edema, pleural effusion, pneumothorax, obvious bony abnormalities. Radiology Impression Discussion of test interpretation with radiology: I have reviewed the radiologist's reading. External Record Review External record reviewed: Inpatient record Prescription Management I considered prescription management with: Pain Medication Chronic Conditions Patient?s care impacted by: Other (Sjogren's, iron-deficiency anemia) Discharge Plan Discharge Clinical Impression: Atypical chest pain, Iron deficiency anemia Patient Disposition: Home, Self-Care Instructions: Iron Rich Diet (ED), Noncardiac Chest Pain (ED) Additional Instructions: Continue using iron supplementation to help with your anemia. This may be contributing some to your chest pain. Return to the ER with any new or worsening symptoms including: Worsening chest pain despite medication, fevers greater than 100?, coughing up green or brown sputum, any new symptom that concerns you. Call 911 with any medical emergency. Follow up with your OBGYN to discuss options for control that may help with your severe abdominal cramping and heavy vaginal bleeding. Prescriptions: New dexamethasone [TaperDex] 1.5 mg (21 tabs) tablets,dose pack 1.5 mg PO DAILY Qty: 21 0RF No Action bupropion HCl 150 mg tablet extended release 24 hr 150 mg PO QAM 90 Days Qty: 90 3RF naproxen 500 mg tablet 500 mg PO BID PRN (Reason: pain) 30 Days Qty: 60 0RF Referrals: [facility] [place] [facility] [Provider Group] Clinical Impression: Iron deficiency anemia Interventions: ED Discharge Assessment Last Done: 06/08/25 06:54 Discharge Date/Time: 06/08/25 06:54 Print Language: Korean
[2025-06-08 05:39] VITALS: BP 120/68; PULSE 55; RESP 14; TEMP 36.9; O2SAT 100
[2025-06-08 06:53] VITALS: BP 127/70; PULSE 64; RESP 18; TEMP 37; O2SAT 100
[2025-06-08 06:54] VITALS: BP 127/70; PULSE 64; RESP 18; TEMP 37; O2SAT 100
== END 2025-06-08 06:54 | disposition home or self-care (01) ==
PROVIDERS: Emergency Provider Emergency Medicine; PCP Internal Medicine
DX: R07.89 Other chest pain (principal); D50.9 Iron deficiency anemia, unspecified; M35.00 Sjogren syndrome, unspecified
CPT/HCPCS: 36415; 71045; 80053; 84484; 85025; 93005; 99283; 99284

== ENCOUNTER → 2025-06-08 02:45 | Outpatient (BNV) | payer OTHER, SELFPAY | PROVIDERS: Emergency Provider Emergency Medicine; PCP Internal Medicine; Visit Provider Internal Medicine | DX: R07.9 Chest pain, unspecified (principal) | CPT/HCPCS: 93010 ==

== ENCOUNTER → 2025-06-08 03:02 | Outpatient (BNV) | payer OTHER, SELFPAY | PROVIDERS: Emergency Provider Emergency Medicine; PCP Internal Medicine; Visit Provider Radiology Vascular & Interventional Radiology | DX: R07.9 Chest pain, unspecified (principal) | CPT/HCPCS: 71045 ==